=== PATIENT | male | born 1990 | race Two or more races ===

== ENCOUNTER 2025-01-19 08:41 | Inpatient (IN) | payer MEDICAID, SELFPAY ==
[2025-01-19] VITALS (51 sets, daily range): BP systolic 98–156; BP diastolic 46–100; PULSE 81–141; RESP 13–99; TEMP 36.8–37.1; O2SAT 94–100; BMI 32.1
--- NOTE | 2025-01-19 08:53 | PD.EDNV ---
Nausea/Vomit./Diarrhea-RME/HPI General Chief complaint: Fever Stated complaint: NAUSEA AND VOMITING, FEVER, ABD PAIN Time Seen by Provider: 01/19/25 08:52 Arrival date/time: 01/19/25 08:41 Limitations: no limitations RME / HPI RME / HPI Narrative: 34 year old male with history of diabetes presents to the ED BIBA from home for evaluation of nausea, vomiting, and abdominal pain beginning yesterday. Reports pain is located most to the epigastric and right upper quadrant regions that is described as cramping aching in sensation, rating as moderate. Accompanied by subjective fevers and feeling short of breath beginning today. Per medics, prehospital BS 480. Patient reports he is noncompliant with his Metformin and last took 6 months ago. Denies fevers, chills, sweats, chest pain, cough, diarrhea, constipation, or urinary symptoms. Related Data Previous Rx's ?Medication ?Instructions ?Recorded blood-glucose sensor (FreeStyle #1 ea 01/21/25 Shorty 3 Plus Sensor device) insulin degludec 100 unit/mL (3 15 unit (0.15 mL) subcut QDAY #15 01/21/25 mL) subcutaneous pen (Tresiba mL FlexTouch U-100 insulin) insulin lispro 100 unit/mL 5 unit (0.05 mL) subcut TID #15 mL 01/21/25 subcutaneous pen pen needle, diabetic 31 gauge x #100 ea 01/21/25 3/16 (Advocate Pen Needle) Allergies Allergy/AdvReac Type Severity Reaction Status Date / Time No Known Allergies Allergy Verified 01/19/25 09:01 Review of Systems Review of Systems Systems Reviewed: All systems reviewed, normal except as documented Past Medical History Past Medical History OTHER HISTORY: Positive Chicken Pox and Measles Family History FAMILY HISTORY: Positive Family Cardiac Disorders (GRANDMOTHER) and Family Gastrointestinal Problems (GRANDMOTHER) Social History SMOKING STATUS: Never smoker ED Exam General Limitations: Present no limitations General appearance: Present alert and other (appears uncomfortable, tachypneic ) Head Head exam: Present atraumatic, normocephalic and normal inspection Eye Eye exam: Present normal appearance, PERRL and EOMI ENT ENT exam: Present normal exam, normal oropharynx and mucous membranes moist Neck Neck exam: Present normal inspection, full ROM and trachea midline Chest Chest inspection: Present normal inspection and symmetric chest wall rise Respiratory Respiratory exam: Present normal lung sounds bilaterally and other (tachypneic ) Cardiovascular Cardiovascular exam: Present normal rhythm, tachycardia and normal heart sounds Abdominal Exam Abdominal exam: Present soft, tenderness (diffuse abdominal pain ) and normal bowel sounds; Absent guarding, rebound or rigidity Extremities Exam Extremities exam: Present normal inspection and full ROM Back Exam Back exam: Present normal inspection and full ROM Neurological Exam Neurological exam: Present alert, oriented X3 and CN II-XII intact Psychiatric Psychiatric exam: Present normal affect and normal mood Skin Skin exam: Present dry, intact, normal color and other (cool) Course Quality Measures none Orders Category Date Time Status Bedside Blood Glucose Q1H Care 01/19/25 11:52 Completed Beverage Host Q4H Care 01/19/25 11:52 Completed DKA Protocol QSHIFT Care 01/19/25 11:52 Completed EKG (ED ONLY) *Do not use* NOW Care 01/19/25 08:56 Completed Notify provider NEEDED Care 01/19/25 11:52 Completed Referral Registered Dietitian Routine Cons 01/19/25 11:52 Active EKG (ED Only) Stat Exams 01/19/25 08:56 Draft US abdomen limited Stat Exams 01/19/25 08:55 Completed XR chest 1V portable Stat Exams 01/19/25 11:52 Completed ABG [Arterial Blood Gas] Stat Lab 01/19/25 12:11 Completed Beta Hydroxybutyrate Stat Lab 01/19/25 10:06 Completed CBC AM DRAW Lab 01/20/25 05:39 Completed CBC Stat Lab 01/19/25 10:06 Completed CMP [Comprehensive Metabolic Panel] Stat Lab 01/19/25 10:06 Completed Drug Screen,Urine Stat Lab 01/19/25 10:58 Completed Glycohemoglobin w (eAG) AM DRAW Lab 01/20/25 05:39 Completed Lactate (Lactic Acid) Q4H Lab 01/19/25 17:23 Completed Lactate (Lactic Acid) Q4H Lab 01/19/25 20:20 Completed Lactate (Lactic Acid) Q4H Lab 01/20/25 00:49 Completed Lactate (Lactic Acid) Q4H Lab 01/20/25 05:39 Completed Lactate (Lactic Acid) Q4H Lab 01/20/25 07:56 Completed Lipase Stat Lab 01/19/25 10:06 Completed Magnesium Q4H Lab 01/19/25 17:23 Completed Magnesium Q4H Lab 01/19/25 20:20 Completed Magnesium Q4H Lab 01/20/25 00:49 Completed Magnesium Q4H Lab 01/20/25 05:39 Completed Magnesium Q4H Lab 01/20/25 07:56 Completed Phosphorous Q4H Lab 01/20/25 07:56 Completed UA, C/S IF [Urinalysis, C/S if Indicated] Stat Lab 01/19/25 10:58 Completed VBG [Venous Blood Gas] Stat Lab 01/19/25 10:06 Completed Dextrose 5%-Lactated Ringers [D5-Lr] 1,000 ml Med 01/19/25 11:52 Discontinued Pot Chl Additive [KCl Additive] 40 meq IV 250 mls/hr Dextrose 5%-Lactated Ringers [D5-Lr] 1,000 ml Med 01/19/25 11:52 Discontinued IV 250 mls/hr Dextrose 50% Syr [D50w Syringe Abboject] Med 01/19/25 11:52 Discontinued 25 ml IV PRNMRX1 PRN KCL 20 mEq/L in D5-LR Med 01/19/25 11:52 Discontinued 20 meq in 1,000 ml IV 250 mls/hr Magnesium Sulfate 2 GM Ivpb [Magnesium Sulfate Ivpb] Med 01/19/25 11:52 Discontinued 2 gm in 50 ml IV 25 mls/hr POT PHOS 15 mMol in NS 250 ML [Pot Phos 15 mMol in NS Med 01/19/25 11:52 Discontinued 250 ml] 15 mmol in 250 ml IV PRN POTASSIUM CHL 10 mEq IVPB [Kcl Ivpb] Med 01/19/25 11:52 Discontinued 10 meq in 100 ml IV 100 mls/hr POTASSIUM CHL 10 mEq IVPB [Kcl Ivpb] Med 01/19/25 11:52 Discontinued 10 meq in 100 ml IV PRN Pre-Mixed [Pre-mixed Bag] 1 bag Med 01/19/25 11:52 Discontinued Insulin Reg 100 Units/100 ml [Myxredlin] 100 unit IV 0.1 unit/kg/hr Ringers Lactated 1000 ml [Lactated Ringers] 1,000 ml Med 01/19/25 11:52 Discontinued Pot Chl Additive [KCl Additive] 20 meq IV 250 mls/hr Ringers Lactated 1000 ml [Lactated Ringers] 1,000 ml Med 01/19/25 11:52 Discontinued Pot Chl Additive [KCl Additive] 40 meq IV 250 mls/hr Ringers Lactated 1000 ml [Lactated Ringers] 1,000 ml Med 01/19/25 11:52 Discontinued IV 250 mls/hr Ringers Lactated 1000 ml [Lactated Ringers] 1,000 ml Med 01/19/25 08:52 Discontinued IV 999 mls/hr Ringers Lactated 1000 ml [Lactated Ringers] 1,000 ml Med 01/19/25 10:28 Discontinued IV 999 mls/hr Ringers Lactated 1000 ml [Lactated Ringers] 1,000 ml Med 01/19/25 10:29 Discontinued IV 999 mls/hr Ringers Lactated 1000 ml [Lactated Ringers] 1,000 ml Med 01/19/25 10:32 Discontinued IV 999 mls/hr Sodium Bicarb 8.4% 50ml Vial* Med 01/19/25 10:32 Discontinued 50 meq IV X1 ONE Sodium Bicarb 8.4% 50ml Vial* [facility] 01/19/25 10:33 Discontinued 50 meq IV X1 ONE Sodium Bicarb 8.4% SYR Med 01/19/25 11:52 Discontinued 50 ml IV Q4HR PRN Sodium Chloride 0.9% 250 ml [Ns] 250 ml Med 01/19/25 11:52 Discontinued Sod Phos Additive [NaPhos Additive] 15 mmol IV 62.5 mls/hr fentaNYL INJ [Sublimaze Inj] Med 01/19/25 08:57 Discontinued 50 mcg IVP X1 ONE Vital Signs Vital signs: Vital Signs Temperature 98.3 F 01/19/25 08:47 Pulse Rate 126 H 01/19/25 08:47 Respiratory Rate 20 01/19/25 08:47 Blood Pressure 114/76 01/19/25 08:47 Pulse Oximetry (%) 99 01/19/25 08:47 Oxygen Delivery Method Room Air 01/19/25 08:47 Pulse ox is 99% on room air which is adequate. Nausea/Vomiting/Diarrhea MDM Narrative MDM Narrative:: Jessica Michel, geraldine scribing for and in the presence of Dr. Soliman. Patient is a 34, yo male that is in the ED with concerns for abdominal pain and nausea. Vital signs and exam as listed. Concern for DKA, urinary tract infection pancreatitis, cholecystitis among others. Ordered labs right upper quadrant ultrasound fluids and offer medication for symptom relief. EKG performed 01/19/2025 @ 09:09 AM shows sinus tachycardia, rate 118, prominent T-waves, normal intervals, nonspecific T-wave changes, no STEMI. Patient presenting with a glucose greater than 400. pH less than 7, currently 6.91, bicarb 29. Beta hydroxybutyrate 6.4. Given history of diabetes concern for DKA. Given the critically low pH ordered 2 Amp of bicarb, additional fluids. Patient provided consent at bedside for placement of a central line if needed. Patient signed form. We were able to obtain IV access, received fluid bolues, meds for symptom relief. Patient feels better. Potassium appropriate for starting insulin gtt. I spoke with arranger assembler Dr. Pack. Discussed patients PMHx, HPI, ED course, exam findings, labs, and radiology results. Patient accepted for admission to the ICU. Patient data External records reviewed:: [facility] previous records (I reviewed admission from 10/04/2020 through 10/07/2020 ) Clinical information provided by:: patient and EMS Social determinants that could affect healthcare access:: none Patient has the following chronic illnesses:: DM with medication noncompliance How is presenting disease/condition affected by chronic disease/condition?: exacerbated by Evaluation data The following diagnostics were reviewed and interpreted by me:: lab results, radiology exam(s) and EKG tracing(s) Lab and/or radiology exams considered but not ordered:: None Interpretation Summary: See MDM Medications / Prescriptions Medications / Prescriptions considered but not ordered:: None Medication administrations:: Medication Administration History Discontinued Medications Acetaminophen (Acetaminophen 325 Mg Tablet) 650 mg PO Q4HR PRN PRN Reason: PAIN SCALE 1-3 (mild Stop: 02/18/25 11:54 Dextrose (Dextrose 50%-Water Inj 50 Ml Syringe) 25 ml IV PRNMRX1 PRN PRN Reason: Blood Sugar - Low Dextrose (Dextrose 50%-Water Inj 50 Ml Syringe) 25 ml IV Q15MIN PRN PRN Reason: BG 50-70 responsive npo pt Stop: 02/19/25 07:09 Dextrose (Dextrose 50%-Water Inj 50 Ml Syringe) 50 ml IV Q15MIN PRN PRN Reason: BG <50 OR BG <70 & pt unresponsive Stop: 02/19/25 07:09 Fentanyl Citrate (Fentanyl Cit Inj 50 Mcg/Ml Amp 2ml) 50 mcg IVP X1 ONE Stop: 01/19/25 08:58 Last Admin: 01/19/25 09:05 Dose: 50 mcg Documented By: TOMMY Glucagon (Glucagon Inj 1 Mg Vial) 1 mg IM Q15MIN PRN PRN Reason: BG <70, and no IV access Heparin Sodium (Porcine) (Heparin Sod Inj 5000 Unit/Ml Vial) 5,000 unit SC Q12HR IRINEO Stop: 02/02/25 20:59 Last Admin: 01/21/25 09:08 Dose: 5,000 unit Documented By: GISSELLE Co-signed By: ME Admin: 01/20/25 20:00 Dose: 5,000 unit Documented By: Co-signed By: PG Admin: 01/20/25 09:57 Dose: 5,000 unit Documented By: (2) Co-signed By: EDGAR Admin: 01/19/25 20:37 Dose: 5,000 unit Documented By: LANA Co-signed By: GERALDINE Lactated Ringer's (Lactated Ringers) 1,000 mls @ 999 mls/hr IV .Q1H1M ONE Stop: 01/19/25 09:52 Last Infusion: 01/19/25 10:23 Dose: Infused Documented By: Admin: 01/19/25 09:08 Dose: 999 mls/hr Documented By: TOMMY Lactated Ringer's (Lactated Ringers) 1,000 mls @ 999 mls/hr IV .Q1H1M ONE Stop: 01/19/25 11:28 Last Admin: 01/19/25 10:52 Dose: 999 mls/hr Documented By: TOMMY Lactated Ringer's (Lactated Ringers) 1,000 mls @ 999 mls/hr IV .Q1H1M ONE Stop: 01/19/25 11:29 Last Admin: 01/19/25 10:56 Dose: 999 mls/hr Documented By: TOMMY Lactated Ringer's (Lactated Ringers) 1,000 mls @ 999 mls/hr IV .Q1H1M ONE Stop: 01/19/25 11:32 Last Admin: 01/19/25 11:05 Dose: 999 mls/hr Documented By: TOMMY Magnesium Sulfate (Magnesium Sulfate Ivpb) 2 gm in 50 mls @ 25 mls/hr IV .Q2H PRN PRN Reason: PER DKA PROTOCOL Stop: 02/18/25 11:51 Last Admin: 01/19/25 21:24 Dose: 25 mls/hr Documented By: WB Potassium Chloride 40 meq/ (Dextrose/Lactated Ringer's) 1,020 mls @ 250 mls/hr IV .Q4H5M PRN PRN Reason: K LEVEL < 3.3mM/L Stop: 02/18/25 11:51 Dextrose/Lactated Ringer's (D5-Lr) 1,000 mls @ 250 mls/hr IV .Q4H PRN PRN Reason: PER PROTOCOL Stop: 02/18/25 11:51 Insulin Human Regular 100 unit (/ IV Miscellaneous Supplies) 100 mls @ 8.754 mls/hr IV .[id number] PRN; Protocol PRN Reason: PER PROTOCOL Stop: 02/18/25 11:51 Last Titration: 01/20/25 08:38 Dose: 0 unit/kg/hr, 0 mls/hr Documented By: MR(2) Co-signed By: WL Titration: 01/20/25 08:00 Dose: 0.05 unit/kg/hr, 4.377 mls/hr Documented By: MR(2) Co-signed By: WL Titration: 01/20/25 07:00 Dose: 0.05 unit/kg/hr, 4.377 mls/hr Documented By: WB Co-signed By: MR(2) Titration: 01/20/25 06:00 Dose: 0.05 unit/kg/hr, 4.377 mls/hr Documented By: WB Co-signed By: CMN Titration: 01/20/25 05:00 Dose: 0.05 unit/kg/hr, 4.377 mls/hr Documented By: WB Co-signed By: CMN Titration: 01/20/25 04:00 Dose: 0.025 unit/kg/hr, 2.189 mls/hr Documented By: WB Co-signed By: CMN Titration: 01/20/25 03:00 Dose: 0.05 unit/kg/hr, 4.377 mls/hr Documented By: WB Co-signed By: CMN Titration: 01/20/25 02:00 Dose: 0.1 unit/kg/hr, 8.754 mls/hr Documented By: WB Co-signed By: CMN Titration: 01/20/25 01:00 Dose: 0.05 unit/kg/hr, 4.377 mls/hr Documented By: WB Co-signed By: CMN Titration: 01/20/25 00:00 Dose: 0.05 unit/kg/hr, 4.377 mls/hr Documented By: WB Co-signed By: CMN Titration: 01/19/25 23:00 Dose: 0.05 unit/kg/hr, 4.377 mls/hr Documented By: WB Co-signed By: CMN Admin: 01/19/25 22:45 Dose: 0.1 unit/kg/hr, 8.754 mls/hr Documented By: WB Co-signed By: CMN Titration: 01/19/25 22:45 Dose: Infused Documented By: WB Co-signed By: CMN Titration: 01/19/25 22:05 Dose: 0.1 unit/kg/hr, 8.754 mls/hr Documented By: WB Co-signed By: CMN Titration: 01/19/25 21:05 Dose: 0.05 unit/kg/hr, 4.377 mls/hr Documented By: WB Co-signed By: CMN Titration: 01/19/25 20:00 Dose: 0.05 unit/kg/hr, 4.377 mls/hr Documented By: WB Co-signed By: CMN Titration: 01/19/25 19:00 Dose: 0.1 unit/kg/hr, 8.754 mls/hr Documented By: WB Co-signed By: LW Titration: 01/19/25 18:00 Dose: 0.05 unit/kg/hr, 4.377 mls/hr Documented By: LW Co-signed By: AT Titration: 01/19/25 17:00 Dose: 0.1 unit/kg/hr, 8.754 mls/hr Documented By: LW Co-signed By: MR(2) Titration: 01/19/25 16:00 Dose: 0.1 unit/kg/hr, 8.754 mls/hr Documented By: LW Co-signed By: AT Titration: 01/19/25 15:00 Dose: 0.1 unit/kg/hr, 8.754 mls/hr Documented By: LW Co-signed By: AT Titration: 01/19/25 14:00 Dose: 0.1 unit/kg/hr, 8.754 mls/hr Documented By: KOSTAS Co-signed By: MR(2) Titration: 01/19/25 13:00 Dose: 0.1 unit/kg/hr, 8.754 mls/hr Documented By: AT Co-signed By: KOSTAS Admin: 01/19/25 12:20 Dose: 0.1 unit/kg/hr, 8.754 mls/hr Documented By: DALJIT Co-signed By: TOMMY Potassium Chloride (Kcl Ivpb) 10 meq in 100 mls @ 100 mls/hr IV .Q1H PRN PRN Reason: IF POTASSIUM LESS THAN 3.3 Stop: 02/18/25 11:51 Last Admin: 01/20/25 06:42 Dose: 100 mls/hr Documented By: LANA Potassium Cl/Dextrose/Lact Ringer's (Kcl 20 Meq/L In D5-Lr) 20 meq in 1,000 mls @ 250 mls/hr IV .Q4H PRN PRN Reason: K LEVEL 3.3 TO 5.3 mM/L Potassium Chloride 20 meq/ (Lactated Ringer's) 1,010 mls @ 250 mls/hr IV .Q4H3M PRN PRN Reason: K LEVEL 3.3 TO 5.3mM/L Stop: 02/18/25 11:51 Last Infusion: 01/20/25 03:00 Dose: 0 mls/hr Documented By: Admin: 01/20/25 02:32 Dose: 250 mls/hr Documented By: Infusion: 01/20/25 02:25 Dose: Infused Documented By: Infusion: 01/20/25 02:00 Dose: 250 mls/hr Documented By: Infusion: 01/19/25 23:00 Dose: 0 mls/hr Documented By: Infusion: 01/19/25 22:05 Dose: 250 mls/hr Documented By: Infusion: 01/19/25 20:05 Dose: 0 mls/hr Documented By: Infusion: 01/19/25 19:00 Dose: 250 mls/hr Documented By: Infusion: 01/19/25 18:31 Dose: 0 mls/hr Documented By: Admin: 01/19/25 16:53 Dose: 250 mls/hr Documented By: Infusion: 01/19/25 16:53 Dose: Infused Documented By: Admin: 01/19/25 12:54 Dose: 250 mls/hr Documented By: KOSTAS Potassium Chloride 40 meq/ (Lactated Ringer's) 1,020 mls @ 250 mls/hr IV .Q4H5M PRN PRN Reason: K LEVEL < 3.3 mM/L Stop: 02/18/25 11:51 Potassium Phosphate (Pot Phos 15 Mmol In Ns 250 Ml) 15 mmol in 250 mls @ 62.5 mls/hr IV PRN PRN PRN Reason: Phosphate <= 1mg/dL Stop: 02/18/25 11:51 Last Admin: 01/19/25 21:24 Dose: 62.5 mls/hr Documented By: LANA Potassium Chloride (Kcl Ivpb) 10 meq in 100 mls @ 50 mls/hr IV PRN PRN PRN Reason: K LEVEL 3.3 to 5.3 & BG > 200 Stop: 02/18/25 11:51 Lactated Ringer's (Lactated Ringers) 1,000 mls @ 250 mls/hr IV .Q4H PRN PRN Reason: PER PROTOCOL Stop: 01/20/25 11:51 Sodium Phosphate 15 mmol/ (Sodium Chloride) 255 mls @ 62.5 mls/hr IV .Q4H5M PRN PRN Reason: Phosphate <= 1mg/dL and K> than 5.3 Stop: 02/18/25 11:51 Potassium Chloride 20 meq/ (Dextrose/Lactated Ringer's) 1,010 mls @ 250 mls/hr IV .Q4H3M PRN PRN Reason: K LEVEL 3.3 TO 5.3 mM/L Stop: 02/18/25 17:33 Last Admin: 01/20/25 07:20 Dose: 250 mls/hr Documented By: Infusion: 01/20/25 07:20 Dose: Infused Documented By: Infusion: 01/20/25 03:00 Dose: 250 mls/hr Documented By: Infusion: 01/20/25 02:00 Dose: 0 mls/hr Documented By: Admin: 01/20/25 01:45 Dose: 250 mls/hr Documented By: Infusion: 01/20/25 01:45 Dose: Infused Documented By: Infusion: 01/19/25 23:00 Dose: 250 mls/hr Documented By: Infusion: 01/19/25 22:05 Dose: 0 mls/hr Documented By: Infusion: 01/19/25 20:05 Dose: 250 mls/hr Documented By: Infusion: 01/19/25 19:00 Dose: 0 mls/hr Documented By: Admin: 01/19/25 18:31 Dose: 250 mls/hr Documented By: KOSTAS Magnesium Sulfate (Magnesium Sulfate Ivpb) 4 gm in 50 mls @ 12.5 mls/hr IV X1 ONE Stop: 01/20/25 05:03 Last Admin: 01/20/25 09:10 Dose: Not Given Documented By: (2) Non-Admin Reason: Discontinued Potassium Phosphate 22.5 mmol/ (Sodium Chloride) 507.5 mls @ 82.778 mls/hr IV X1 ONE Stop: 01/20/25 15:08 Last Admin: 01/20/25 09:54 Dose: Not Given Documented By: (2) Non-Admin Reason: Discontinued Potassium Phosphate (Pot Phos 15 Mmol In Ns 250 Ml) 15 mmol in 250 mls @ 62.5 mls/hr IV Q4H [facility] Stop: 01/20/25 17:14 Last Admin: 01/20/25 16:24 Dose: 62.5 mls/hr Documented By: Infusion: 01/20/25 14:24 Dose: Infused Documented By: Admin: 01/20/25 10:24 Dose: 62.5 mls/hr Documented By: (2) Insulin Degludec (Insulin Degludec 5 Unit/0.05 Ml (Per 5 Units)) 13 unit SC X1 ONE Stop: 01/20/25 04:45 Last Admin: 01/20/25 09:10 Dose: Not Given Documented By: (2) Non-Admin Reason: Discontinued Insulin Degludec (Insulin Degludec 5 Unit/0.05 Ml (Per 5 Units)) 13 unit SC QDAY IRINEO Stop: 02/19/25 07:09 Last Admin: 01/21/25 09:08 Dose: 13 unit Documented By: GISSELLE Co-signed By: LORENA Admin: 01/20/25 09:12 Dose: Not Given Documented By: (2) Non-Admin Reason: Duplicate Medication on eMAR Admin: 01/20/25 07:38 Dose: 13 unit Documented By: WB Co-signed By: MARY2) Insulin Human Lispro (Insulin Lispro (Admelog) 1 Unit/0.01 Ml Unit) 4 unit SC AC IRINEO Stop: 02/19/25 07:29 Last Admin: 01/20/25 07:32 Dose: Not Given Documented By: WB Non-Admin Reason: per Dr. Don hold this dose, give at 11:30 Insulin Human Lispro (Insulin Lispro (Admelog) 1 Unit/0.01 Ml Unit) 0 unit SC AC IRINEO; Protocol Stop: 02/19/25 07:29 Last Admin: 01/21/25 12:52 Dose: 1 unit Documented By: LH Co-signed By: ETHAN Admin: 01/21/25 09:08 Dose: 2 unit Documented By: LH Co-signed By: LORENA Admin: 01/20/25 17:56 Dose: 2 unit Documented By: LH Co-signed By: MARTIN Admin: 01/20/25 12:29 Dose: 3 unit Documented By: LH Co-signed By: LORENA Admin: 01/20/25 07:33 Dose: Not Given Documented By: WB Non-Admin Reason: per Dr. Don hold this dose, give at 11:30 Insulin Human Lispro (Insulin Lispro (Admelog) 1 Unit/0.01 Ml Unit) 4 unit SC AC IRINEO Stop: 02/19/25 11:29 Last Admin: 01/21/25 12:53 Dose: 4 unit Documented By: LH Co-signed By: ETHAN Admin: 01/21/25 09:09 Dose: 4 unit Documented By: LH Co-signed By: LORENA Admin: 01/20/25 17:56 Dose: 4 unit Documented By: LH Co-signed By: MARTIN Admin: 01/20/25 12:29 Dose: 4 unit Documented By: LH Co-signed By: LORENA Insulin Human Lispro (Insulin Lispro (Admelog) 1 Unit/0.01 Ml Unit) 4 unit SC X1 ONE Stop: 01/20/25 09:02 Last Admin: 01/20/25 09:57 Dose: 4 unit Documented By: MARY2) Co-signed By: EDGAR Magnesium Hydroxide (Milk Of Magnesia Susp 30 Ml Udc) 30 ml PO QDAY PRN PRN Reason: CONSTIPATION Stop: 02/18/25 11:54 Magnesium Hydroxide (Milk Of Magnesia Susp 30 Ml Udc) 30 ml PO X1 ONE; Protocol Stop: 01/21/25 10:23 Last Admin: 01/21/25 11:07 Dose: 30 ml Documented By: GISSELLE Ondansetron HCl (Ondansetron Inj 2 Mg/Ml Inj 2 Ml) 4 mg IVP Q6HR PRN; Protocol PRN Reason: NAUSEA OR VOMITING Stop: 02/18/25 18:28 Last Admin: 01/19/25 20:17 Dose: 4 mg Documented By: LANA Pantoprazole Sodium (Pantoprazole 40 Mg Tablet) 40 mg PO QDAY [facility] Stop: 02/19/25 08:59 Last Admin: 01/21/25 09:08 Dose: 40 mg Documented By: Admin: 01/20/25 09:57 Dose: 40 mg Documented By: (2) Polyethylene Glycol (Polyethylene Glycol 17 Gm Packet) 34 gm PO QDAY IRINEO Stop: 02/20/25 10:29 Last Admin: 01/21/25 11:08 Dose: 34 gm Documented By: GISSELLE Potassium Chloride (Potassium Chloride 20 Meq Tabcr) 20 meq PO X1 ONE Stop: 01/20/25 18:39 Last Admin: 01/20/25 19:59 Dose: 20 meq Documented By: Potassium Chloride (Potassium Chloride 20 Meq Tabcr) 40 meq PO X1 ONE Stop: 01/21/25 08:30 Last Admin: 01/21/25 09:08 Dose: 40 meq Documented By: GISSELLE Potassium Phos/Sodium Phos (Naph,[facility] Mbdb 1 Packet (1.5 Gm)) 1 packet PO BIDWM IRINEO Stop: 01/21/25 17:31 Last Admin: 01/21/25 09:08 Dose: 1 packet Documented By: Admin: 01/20/25 17:57 Dose: 1 packet Documented By: Admin: 01/20/25 12:29 Dose: 1 packet Documented By: GISSELLE Sennosides (Senna/Docusate Sod 1 Tab Tablet) 2 tab PO QDAY IRINEO; Protocol Stop: 02/20/25 10:29 Last Admin: 01/21/25 11:08 Dose: 2 tab Documented By: GISSELLE Sodium Bicarbonate (Sodium Bicarb Inj 8.4% 1 Meq/Ml 50 Ml Vial) 50 meq IV X1 ONE Stop: 01/19/25 10:33 Last Admin: 01/19/25 10:54 Dose: 50 meq Documented By: TOMMY Sodium Bicarbonate (Sodium Bicarb Inj 8.4% 1 Meq/Ml 50 Ml Vial) 50 meq IV X1 ONE Stop: 01/19/25 10:34 Last Admin: 01/19/25 11:01 Dose: 50 meq Documented By: TOMMY Sodium Bicarbonate (Sodium Bicarb Inj 8.4% Syr 50 Ml Syringe) 50 ml IV Q4HR PRN PRN Reason: For ph <= to 7.0 Stop: 02/18/25 11:51 See above Consultations Consultation(s) initiated? (list below): Yes Consultation #1 (Physician, Specialty, Details): see mdm Diagnosis Nausea Differential Diagnosis: food poisoning, gastroenteritis, drug-induced nausea and vomiting, dehydration and other (Hyperglycemia, DKA ) Most likely diagnosis given after review of the tests above:: DKA Admission Indicated Admission indicated?: indicated Admission Request Was there a request for admission?: Yes Admission Attestation Admission request attestation: Discussed case with Hospitalist service regarding admission. Discussed patients ED course, exam findings, labs, and radiology results. The Hospitalist [agrees] to accept the patient for admission. Disposition Plan Disposition Plan: Admit Critical Care Time Critical Care Time Critical Care Time: Yes Total Critical Care Time (min.): 120 Attestation: The high probability of sudden, clinically significant deterioration in the patient's condition required the highest level of my preparedness to intervene urgently. The services I provided to this patient were to treat and/or prevent clinically significant deterioration. Services included the following: chart data review, reviewing nursing notes and/or old charts, documentation time, it support consultant collaboration regarding findings and treatment options, medication orders and management, direct patient care, vital sign assessments and ordering, interpreting and reviewing diagnostic studies and lab tests. Aggregate critical care time includes only time during which I was engaged in work directly related to the patient's care, as described above, whether at bedside or elsewhere in the Emergency Department. It did not include time spent performing other reported procedures or the services of residents, students, nurses or physician assistants. Discharge Plan Plan Patient Disposition: Admit Acute Care w/in Hospital Patient condition on transfer: Stable Problem List Clinical Impression: DKA (diabetic ketoacidoses)
--- NOTE | 2025-01-19 08:55 | XR_ITS ---
Examination: Abdomen sonogram, Limited Date and time of exam: January 19 thousand 25, 1412 hrs. Indications: Epigastric pain today, diagnosis diabetic C1 stenosis Technique: Real-time florez scale transabdominal sonographic images of the upper abdomen obtained. Findings: Cholelithiasis, gallbladder wall 0.3 cm Common bile duct 0.4 cm Pancreatic head 1.9 cm Liver 15.0 cm fatty infiltration Normal hepatopedal portal venous flow Patent IVC Impression: Cholelithiasis, negative for cholecystitis
--- NOTE | 2025-01-19 08:56 | EKG_ITS ---
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
[2025-01-19] MEDS: fentaNYL CIT INJ 50 mCg/ML AMP 2ML IVP (09:05)
[2025-01-19] MEDS: RINGERS LACTATED 1000 ML 1,000 ML 999 ML IV ×4 (09:08→11:05)
[2025-01-19 10:17] LABS: Base Excess, Venous -27 (-3-3); O2 Saturation, Venous 71 % (96-97); PCO2, Venous 29 mmHg (36-56); PO2, Venous 47 mmHg (15-58); pH, Venous 6.91 (7.33-7.66)
[2025-01-19 10:23] LABS: Basophils # (Auto) 0.1 Thou/mm3 (0.0-0.2); Basophils % (Auto) 0 % (0-2.5); Beta Hydroxybutyrate 6.4 mmol/L (<0.6); Eosinophils # (Auto) 0.0 Thou/mm3 (0.0-0.5); Eosinophils % (Auto) 0 % (0-10); Hematocrit 48.9 % (41.0-53.0); Hemoglobin 16.2 g/dL (13.5-16.0); Immature Granulocytes Auto 0.24 Thou/mm3 (0.00-0.00); Lymphocytes # (Auto) 1.0 Thou/mm3 (1.0-4.8); Lymphocytes % (Auto) 7 % (10-50); Mean Corpuscular HGB Conc 33.1 g/dl (31.0-37.0); Mean Corpuscular Hemoglobin 28.4 pg (25.0-35.0); Mean Corpuscular Volume 86 fL (80-100); Monocytes # (Auto) 0.7 Thou/mm3 (0.0-0.8); Monocytes % (Auto) 5 % (0-12); Neutrophils # (Auto) 12.6 Thou/mm3 (1.8-7.7); Neutrophils % (Auto) 87 % (37-80); Nucleated Red Blood Cell # 0.00 Thou/mm3 (0.00-0.00); Nucleated Red Blood Cell % 0 /100 WBC (0); Platelet Count 256 Thou/mm3 (140-440); RDW Standard Deviation 40.0 fL (35.1-43.9); Red Blood Count 5.71 Miln/mm3 (4.50-5.90); White Blood Count 14.6 Thou/mm3 (3.8-10.6)
[2025-01-19] MEDS: SODIUM BICARB INJ 8.4% 1 mEq/ML 50 ML VIAL 50 MEQ IV ×2 (10:54→11:01)
[2025-01-19 11:14] LABS: Alanine Aminotransferase 25 U/L (10-49); Albumin, Serum 4.5 gm/dL (3.5-5.0); Albumin/Globulin Ratio 1.7 (1.2-2.2); Alkaline Phosphatase 90 U/L (46-116); Anion Gap 27 (7-16); Aspartate Amino Transferase 12 U/L (0-34); BUN/Creatinine Ratio 14 Ratio (12-20); Bilirubin,Total 0.4 mg/dL (0.3-1.2); Blood Urea Nitrogen 26 mg/dL (9-23); Calcium 9.1 mg/dL (8.3-10.6); Calcium (Corrected) 9.1 mg/dL (8.5-10.1); Chloride 101 mMol/L (98-107); Creatinine (Component) 1.9 mg/dL (0.6-1.3); Estimated Creatinine Clearance 55.2 mL/min (>60); Globulin 2.6 gm/dL (2.3-3.5); Lipase 24 U/L (12-53); Osmolality,Calculated 308 (275-295); Potassium 5.0 mMol/L (3.4-5.1); Sodium 138 mMol/L (136-145); Total Protein 7.1 gm/dL (5.7-8.2); eGFR 47 See Note
[2025-01-19 11:17] LABS: Carbon Dioxide < 10.0 mMol/L (20.0-31.0)
[2025-01-19 11:17] LABS: Collection Type, Urine Clean Catch; Squamous Epithelial Cell,Urine 0 /hpf (0-5)
[2025-01-19 11:18] LABS: Glucose 604 mg/dL (74-106)
[2025-01-19 11:39] LABS: Amorphous Crystals,Urine Present (Absent); Bilirubin,Urine Negative (Negative); Blood,Urine 2+ (Negative); Clarity,Urine Clear (Clear/Hazy); Color,Urine Lt-Yellow (Lt Yel-Yel); Culture Indicated,Urine Not Indicated; Glucose, Urine 4+ (Negative); Granular Casts,Urine 1 /hpf (0-1); Ketones,Urine 4+ (Negative); Leukocyte Esterase,Urine Negative (Negative); Nitrite,Urine Negative (Negative); PH,Urine 5.5 (5.0-7.0); Protein,Urine 1+ (Neg - Trace); RBC,Urine 7 /hpf (0-3); Specific Gravity,Urine 1.026 (1.001-1.035); Urobilinogen,Urine Negative mg/dL (0.0-1.0); WBC,Urine 2 /hpf (0-5)
[2025-01-19 11:46] LABS: Amphetamine/Methamp Scrn,U Negative (Negative); Barbiturate Screen,Urine Negative (Negative); Benzodiazepines Screen,Urine Negative (Negative); Benzoylecgonine Screen, Ur Negative (Negative); Fentanyl Screen,Urine Positive (Negative); Opiate Screen,Urine Negative (Negative); THC Screen,Urine Negative (Negative)
--- NOTE | 2025-01-19 11:52 | XR_ITS ---
Examination: AP chest single view Technique one AP portable upright chest single view Date and time: January 19, 2025 1217 hours, comparison October 04, 2020 INDICATIONS: Fever congestion today. FINDINGS: Normal heart size. Lungs are clear. The osseous structures are intact. IMPRESSION: No active disease
--- NOTE | 2025-01-19 12:02 | PD.RESHP ---
Documentation for date of: 01/19/25 HPI History of Present Illness Chief complaint: Abdominal pain , nausea and vomiting History of present illness: Patient is Vietnamese-speaking and translated with the help of staff interpreter. A 34-year-old male with significant past medical history of DKA, diagnosed with diabetes mellitus during that episode but not on any medication and notes that he is using some herbal supplements presented to the ED with chief complaints of abdominal pain, nausea and vomiting since 2 days. Patient reported that he is at his normal baseline 2 days ago. Noted to have abdominal pain, predominantly in the epigastric region associated with nausea and vomitings since the day before admission. Noted to have multiple episodes of vomitings, mainly watery and not associated with any blood or discoloration. Reported that he felt like he had mild racing temperature of the body but did not check it with the monitor. And endorsed on the day of admission, he noted significant shortness of breath due to which he came to the ED for further evaluation. Denies cough, burning micturition, syncopal episodes, diarrhea, recent sick contacts, flulike illness. Reported that he is not following with his primary care provider and does not take any medications for diabetes mellitus except some herbal supplements. ED course: - Vitals at the time of admission are significant for pulse rate 126 bpm - Labs at the time of admission significant for WBC 14.6, hemoglobin 16.2, potassium 5, bicarb less than 10, anion gap 27, BUN 26, creatinine 1.9. Glucose 604, beta hydroxybutyrate 6.4, lipase 24 - Initial VBG showed pH 6.91, ABG showed pH of 7.05, bicarb 6, pCO2 20 - Urinalysis showed 1+ protein, 4+ glucose, 4+ ketones, 2+ blood, 7 RBC - Chest x-ray done did not show any significant infiltrates. EKG showed sinus tachycardia with no ST-T wave changes. Abdominal ultrasound showed cholelithiasis and negative for cholecystitis - In the ED, patient was given 4 L of fluid bolus, fentanyl 50 mcg, 1 dose of sodium bicarb 50 mill equivalents. - Patient is admitted in the ICU for DKA management. Past medical history: DKA, diabetes mellitus not on any medication Past surgical history: Not significant Social history: Patient lives alone, denies smoking, alcohol, other illicit drug abuse. Works in the [employer] Review of Systems Review of Systems Systems Reviewed: All systems reviewed, normal except as documented Narrative Review of Systems: Constitutional: No Weight Change, No Fever, No Chills, No Night Sweats, No Fatigue, No Malaise ENT/Mouth: No Hearing Changes, No Ear Pain, No Nasal Congestion, No Sinus Pain, No Hoarseness, No sore throat, No Rhinorrhea, No Swallowing Difficulty Eyes: No Eye Pain, No Swelling, No Redness, No Foreign Body, No Discharge, No Vision Changes Cardiovascular: No Chest Pain, No SOB, No PND, No Dyspnea on Exertion, No Orthopnea, No Edema, No Palpitations Respiratory: No Cough, No Sputum, No Wheezing, Dyspnea Gastrointestinal: Nausea, Vomiting, No Diarrhea, No Constipation, No Pain, No Heartburn, No Anorexia, No Dysphagia, No Hematochezia, No Melena, No Flatulence, No Jaundice Genitourinary: No Dysuria, No Urinary Frequency, No Hematuria, No Urinary Incontinence, No Urgency, No Flank Pain, No Urinary Flow Changes, No Hesitancy Musculoskeletal: No Arthralgias, No Myalgias, No Joint Swelling, No Joint Stiffness, No Back Pain, No Neck Pain, No Injury History Skin: No Skin Lesions, No Pruritis Neuro: No Weakness, No Numbness, No Paresthesias, No Loss of Consciousness, No Syncope, No Dizziness, No Headache, No Coordination Changes, No Recent Falls Exam Vital Signs Temp Pulse Resp BP Pulse Ox O2 Del Method 98.3 F 126 H 20 114/76 99 Room Air 01/19/25 08:47 01/19/25 08:47 01/19/25 08:47 01/19/25 08:47 01/19/25 08:47 01/19/25 08:47 Narrative Exam General: Awake. noted kussumaul breathing HEENT: Normocephalic, atraumatic, mucous membranes dry. Heart: Regular rhythm, no murmurs. Tachycardia Lungs: Clear to auscultation with no wheezing or crackles. Abdomen: Soft, nondistended, nontender, positive bowel sounds. ?No guarding or rebound tenderness. Neurologic: Alert and oriented x3, no gross neurological deficit, and patient able to move all 4 extremities. Extremities: No edema. Skin: No rash or ecchymoses. Results: Labs 01/20/25 05:39 01/20/25 05:39 Labs: Short CBC 01/19/25 Range/Units 10:06 WBC 14.6 H (3.8-10.6) Thou/mm3 Hgb 16.2 H (13.5-16.0) g/dL Hct 48.9 (41.0-53.0) % Plt Count 256 (140-440) Thou/mm3 BMP 01/19/25 10:06 Sodium 138 Potassium 5.0 Chloride 101 Carbon Dioxide < 10.0 L* BUN 26 H Creatinine 1.9 H Glucose 604 H* Calcium 9.1 Liver Function 01/19/25 Range/Units 10:06 Total Bilirubin 0.4 (0.3-1.2) mg/dL AST 12 (0-34) U/L ALT 25 (10-49) U/L Alkaline Phosphatase 90 (46-116) U/L Albumin 4.5 (3.5-5.0) gm/dL Urine 01/19/25 Range/Units 10:58 Urine Color Lt-Yellow (Lt Yel-Yel) Urine Clarity Clear (Clear/Hazy) Urine pH 5.5 (5.0-7.0) Ur Specific [place] 1.026 (1.001-1.035) Urine Protein 1+ A (Neg - Trace) Urine Glucose (UA) 4+ A (Negative) ABG Interpretation ABG results: 01/19/25 10:06 VBG pH 6.91 L VBG pCO2 29 L VBG pO2 47 VBG Base Excess -27 L Quality Measures Quality Measures none Medications Home Medications and Allergies Allergies Allergy/AdvReac Type Severity Reaction Status Date / Time No Known Allergies Allergy Verified 01/19/25 09:01 Visit Medications Acetaminophen (Acetaminophen 325 Mg Tablet) 650 mg PO Q4HR PRN PRN Reason: PAIN SCALE 1-3 (mild Stop: 02/18/25 11:54 Dextrose (Dextrose 50%-Water Inj 50 Ml Syringe) 25 ml IV [id number] PRN PRN Reason: Blood Sugar - Low Heparin Sodium (Porcine) (Heparin Sod Inj 5000 Unit/Ml Vial) 5,000 unit SC Q12HR IRINEO Stop: 02/02/25 20:59 Lactated Ringer's (Lactated Ringers) 1,000 mls @ 999 mls/hr IV .Q1H1M ONE Stop: 01/19/25 11:28 Last Admin: 01/19/25 10:52 Dose: 999 mls/hr Lactated Ringer's (Lactated Ringers) 1,000 mls @ 999 mls/hr IV .Q1H1M ONE Stop: 01/19/25 11:29 Last Admin: 01/19/25 10:56 Dose: 999 mls/hr Lactated Ringer's (Lactated Ringers) 1,000 mls @ 999 mls/hr IV .Q1H1M ONE Stop: 01/19/25 11:32 Last Admin: 01/19/25 11:05 Dose: 999 mls/hr Magnesium Sulfate (Magnesium Sulfate Ivpb) 2 gm in 50 mls @ 25 mls/hr IV .Q2H PRN PRN Reason: PER DKA PROTOCOL Stop: 02/18/25 11:51 Potassium Chloride 40 meq/ (Dextrose/Lactated Ringer's) 1,020 mls @ 250 mls/hr IV .Q4H5M PRN PRN Reason: K LEVEL < 3.3mM/L Stop: 02/18/25 11:51 Dextrose/Lactated Ringer's (D5-Lr) 1,000 mls @ 250 mls/hr IV .Q4H PRN PRN Reason: PER PROTOCOL Stop: 02/18/25 11:51 Insulin Human Regular 100 unit (/ IV Miscellaneous Supplies) 100 mls @ 8.754 mls/hr IV .[id number] PRN; Protocol PRN Reason: PER PROTOCOL Stop: 02/18/25 11:51 Potassium Chloride (Kcl Ivpb) 10 meq in 100 mls @ 100 mls/hr IV .Q1H PRN PRN Reason: IF POTASSIUM LESS THAN 3.3 Stop: 02/18/25 11:51 Potassium Cl/Dextrose/Lact Ringer's (Kcl 20 Meq/L In D5-Lr) 20 meq in 1,000 mls @ 250 mls/hr IV .Q4H PRN PRN Reason: K LEVEL 3.3 TO 5.3 mM/L Potassium Chloride 20 meq/ (Lactated Ringer's) 1,010 mls @ 250 mls/hr IV .Q4H3M PRN PRN Reason: K LEVEL 3.3 TO 5.3mM/L Stop: 02/18/25 11:51 Potassium Chloride 40 meq/ (Lactated Ringer's) 1,020 mls @ 250 mls/hr IV .Q4H5M PRN PRN Reason: K LEVEL < 3.3 mM/L Stop: 02/18/25 11:51 Potassium Phosphate (Pot Phos 15 Mmol In Ns 250 Ml) 15 mmol in 250 mls @ 62.5 mls/hr IV PRN PRN PRN Reason: Phosphate <= 1mg/dL Stop: 02/18/25 11:51 Potassium Chloride (Kcl Ivpb) 10 meq in 100 mls @ 50 mls/hr IV PRN PRN PRN Reason: K LEVEL 3.3 to 5.3 & BG > 200 Stop: 02/18/25 11:51 Lactated Ringer's (Lactated Ringers) 1,000 mls @ 250 mls/hr IV .Q4H PRN PRN Reason: PER PROTOCOL Stop: 01/20/25 11:51 Sodium Phosphate 15 mmol/ (Sodium Chloride) 255 mls @ 62.5 mls/hr IV .Q4H5M PRN PRN Reason: Phosphate <= 1mg/dL and K> than 5.3 Stop: 02/18/25 11:51 Magnesium Hydroxide (Milk Of Magnesia Susp 30 Ml Udc) 30 ml PO QDAY PRN PRN Reason: CONSTIPATION Stop: 02/18/25 11:54 Pantoprazole Sodium (Pantoprazole 40 Mg Tablet) 40 mg PO QDAY IRINEO Stop: 02/19/25 08:59 Sodium Bicarbonate (Sodium Bicarb Inj 8.4% Syr 50 Ml Syringe) 50 ml IV Q4HR PRN PRN Reason: For ph <= to 7.0 Stop: 02/18/25 11:51 Discontinued Medications Fentanyl Citrate (Fentanyl Cit Inj 50 Mcg/Ml Amp 2ml) 50 mcg IVP X1 ONE Stop: 01/19/25 08:58 Last Admin: 01/19/25 09:05 Dose: 50 mcg Lactated Ringer's (Lactated Ringers) 1,000 mls @ 999 mls/hr IV .Q1H1M ONE Stop: 01/19/25 09:52 Last Infusion: 01/19/25 10:23 Dose: Infused Sodium Bicarbonate (Sodium Bicarb Inj 8.4% 1 Meq/Ml 50 Ml Vial) 50 meq IV X1 ONE Stop: 01/19/25 10:33 Last Admin: 01/19/25 10:54 Dose: 50 meq Sodium Bicarbonate (Sodium Bicarb Inj 8.4% 1 Meq/Ml 50 Ml Vial) 50 meq IV X1 ONE Stop: 01/19/25 10:34 Last Admin: 01/19/25 11:01 Dose: 50 meq Assessment & Plan Plan A 34-year-old male with significant past medical history of DKA, diagnosed with diabetes mellitus during that episode but not on any medication and notes that he is using some herbal supplements presented to the ED with chief complaints of abdominal pain, nausea and vomiting since 2 days and admitted in the 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 for 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 CVS # Sinus tachycardia - Likely in the setting of ongoing dehydration secondary to DKA - Patient denies chest pain, syncopal-like episodes - EKG done at the time of admission showed sinus tachycardia without any ST and T wave changes RS # Kussmaul breathing - Noted to have respiratory rate of 30/min - Likely compensatory to the ongoing metabolic acidosis - Will treat underlying DKA Renal #High anion gap metabolic acidosis # Ketoacidosis # Lactic acidosis - Likely in the setting of ongoing DKA and severe dehydration - At the time of admission, noted to have bicarb less than 10, anion gap 27, lactate is 2.6, beta hydroxybutyrate is 6.4 - ABG done at the time of admission showed pH 7.05, bicarb 6, pCO2 20 Plan - Started on DKA protocol - Will continue to monitor renal panel # GABYB - Likely prerenal in the setting of severe DKA causing dehydration and hypovolemia - Baseline creatinine is 0.6 in 2020 - At the time of admission, creatinine is 1.9, BUN 26 Plan - Will treat underlying DKA - Patient received 4 L bolus in the ED - Will continue to monitor renal panel and urine output - Will avoid nephrotoxic medications and renally dose medications Endo # Diabetic ketoacidosis # Diabetes mellitus, likely type I -Likely from drug incompetence - Patient had history of DKA in 2020 and was diagnosed to have diabetes mellitus at that time - Patient was supposed to use insulin but not compliant with medications and endorsed that he is using some herbal supplements for that and previously used metformin occasionally - Denies following up with any primary care provider - Presented to the hospital with chief complaints of abdominal pain, nausea and vomiting - No suspicion of any infection as of now - At the time of admission noted to have pH 6.9, beta hydroxybutyrate 6.4, glucose 604 Plan - 4 L of LR boluses given in the ED - Started on DKA protocol - Will continue to monitor renal functions and electrolytes, replete as needed - Once anion gap closes twice, will transition from IV to subcu insulin GI # GI prophylaxis - Started on pantoprazole # Nausea and vomiting - Likely in the setting of DKA - Will treat underlying condition and ondansetron as needed ID # No active problems Musculoskeletal # No active problems Hospital Maintenance: Dispo: ICU DVT ppx: heparin GI ppx: pantoprazole Diet: Water IV lines: peripheral Code status: Full Patient plan of care was discussed with the Compressor Mechanic Bus, Dr. Ramone Blackman, PGY2 Attending Provider Attestation/Addendum Patient seen and examined with above resident, Kris Blackman MD. I agree with the findings, assessment, and plan of care as documented except for any differences below. Patient known history of diabetes, however limited understanding and is up to his underlying medical illness. Patient with repeat episode of diabetic ketoacidosis requiring admission to ICU for ongoing fluid resuscitation and IV insulin/monitoring. No underlying suspected infection or ischemic event as a precipitant. Patient reports that he has been taking herbal supplements though he was prescribed insulin on discharge. Previously was treated only with metformin. Patient is starting to produce urine after 4 L of volume resuscitation in the emergency department. Continue to follow labs serially per protocol. Transition to subcutaneous regimen when appropriate. Total critical care time: Personally spent 30 minutes for review of physiologic parameters, directing plan of care throughout the day, and counseling patient at bedside. This is exclusive of any time spent teaching of staff performing separate billable procedures. Patient remains at significant risk of further morbidity and mortality warranting close monitoring and care will be available in the ICU. Critical care services required for diabetic ketoacidosis and SIRS without definitive infection.
[2025-01-19 12:13] LABS: Base Excess -23 (-3-3); HCO3 6 mEq/L (20-26); Inspired Oxygen, FIO2 21 %; O2 Saturation 70 % (91-98); PCO2 20 mmHg (32.0-48.0)
[2025-01-19 12:15] LABS: Allen Test Not Performed; Puncture Site Left Radial
[2025-01-19 12:17] LABS: PO2 41 mmHg (83-108); pH, Arterial 7.05 (7.35-7.45)
[2025-01-19] MEDS: INSULIN REG 100 UNITS/100 ML 100 UNIT in PRE-MIXED 1 BAG 8.754 UNIT IV ×2 (12:20→22:45)
[2025-01-19] MEDS: POT CHL ADDITIVE 20 MEQ in RINGERS LACTATED 1000 ML 1,000 ML 250 MEQ IV ×2 (12:54→16:53)
[2025-01-19 13:17] LABS: Lactate (Lactic Acid) 2.6 mMol/L (0.4-2.0)
[2025-01-19 13:48] LABS: Albumin, Serum 4.0 gm/dL (3.5-5.0); Anion Gap 25 (7-16); BUN/Creatinine Ratio 12 Ratio (12-20); Blood Urea Nitrogen 19 mg/dL (9-23); Calcium 8.5 mg/dL (8.3-10.6); Calcium (Corrected) 8.5 mg/dL (8.5-10.1); Chloride 108 mMol/L (98-107); Creatinine (Component) 1.6 mg/dL (0.6-1.3); Estimated Creatinine Clearance 65.5 mL/min (>60); Magnesium 1.9 mg/dL (1.6-2.6); Osmolality,Calculated 308 (275-295); Phosphorous 2.8 mg/dL (2.4-5.1); Potassium 3.9 mMol/L (3.4-5.1); Sodium 143 mMol/L (136-145); eGFR 58 See Note
[2025-01-19 13:51] LABS: Carbon Dioxide < 10.0 mMol/L (20.0-31.0); Glucose 485 mg/dL (74-106)
[2025-01-19 16:15] LABS: Reflex Lactate? Y
[2025-01-19 17:46] LABS: Lactate (Lactic Acid) 1.8 mMol/L (0.4-2.0)
[2025-01-19 18:31] LABS: Albumin, Serum 3.6 gm/dL (3.5-5.0); Anion Gap 21 (7-16); BUN/Creatinine Ratio 14 Ratio (12-20); Blood Urea Nitrogen 19 mg/dL (9-23); Calcium 8.5 mg/dL (8.3-10.6); Calcium (Corrected) 8.8 mg/dL (8.5-10.1); Chloride 113 mMol/L (98-107); Creatinine (Component) 1.4 mg/dL (0.6-1.3); Estimated Creatinine Clearance 74.9 mL/min (>60); Glucose 223 mg/dL (74-106); Magnesium 1.8 mg/dL (1.6-2.6); Osmolality,Calculated 296 (275-295); Phosphorous 1.1 mg/dL (2.4-5.1); Potassium 4.0 mMol/L (3.4-5.1); Sodium 144 mMol/L (136-145); eGFR > 60 See Note
[2025-01-19] MEDS: POT CHL ADDITIVE 20 MEQ in DEXTROSE 5%-LACTATED RINGERS 1,000 ML 250 MEQ IV (18:31)
[2025-01-19 18:32] LABS: Carbon Dioxide < 10.0 mMol/L (20.0-31.0)
[2025-01-19] MEDS: ONDANSETRON INJ 2 MG/ML INJ 2 ML 4 MG IVP (20:17)
[2025-01-19 20:27] LABS: Lactate (Lactic Acid) 1.6 mMol/L (0.4-2.0)
[2025-01-19] MEDS: HEPARIN SOD INJ 5000 UNIT/ML VIAL SC (20:37)
[2025-01-19 20:47] LABS: Albumin, Serum 3.5 gm/dL (3.5-5.0); Anion Gap 16 (7-16); BUN/Creatinine Ratio 12 Ratio (12-20); Blood Urea Nitrogen 14 mg/dL (9-23); Calcium 8.5 mg/dL (8.3-10.6); Calcium (Corrected) 8.9 mg/dL (8.5-10.1); Carbon Dioxide 15.4 mMol/L (20.0-31.0); Chloride 114 mMol/L (98-107); Creatinine (Component) 1.2 mg/dL (0.6-1.3); Estimated Creatinine Clearance 87.4 mL/min (>60); Glucose 180 mg/dL (74-106); Magnesium 1.7 mg/dL (1.6-2.6); Osmolality,Calculated 294 (275-295); Potassium 3.4 mMol/L (3.4-5.1); Sodium 145 mMol/L (136-145); eGFR > 60 See Note
[2025-01-19 21:06] LABS: Phosphorous 0.5 mg/dL (2.4-5.1)
[2025-01-19] MEDS: Magnesium Sulfate 2 GM Ivpb 2 GM/50 ML BAG IV (21:24)
[2025-01-19] MEDS: POT PHOS 15 mMol in NS 250 ML 15 MMOL/250 ML BAG 62.5 MMOL IV (21:24)
[2025-01-20] VITALS (15 sets, daily range): BP systolic 99–120; BP diastolic 58–78; PULSE 70–100; RESP 14–98; TEMP 36.3–36.4; O2SAT 96–99; BMI 29.5
[2025-01-20 01:03] LABS: Lactate (Lactic Acid) 0.8 mMol/L (0.4-2.0)
[2025-01-20 01:34] LABS: Albumin, Serum 2.9 gm/dL (3.5-5.0); Anion Gap 11 (7-16); BUN/Creatinine Ratio 9 Ratio (12-20); Blood Urea Nitrogen 10 mg/dL (9-23); Calcium 8.4 mg/dL (8.3-10.6); Calcium (Corrected) 9.3 mg/dL (8.5-10.1); Carbon Dioxide 17.7 mMol/L (20.0-31.0); Chloride 115 mMol/L (98-107); Creatinine (Component) 1.1 mg/dL (0.6-1.3); Estimated Creatinine Clearance 95.3 mL/min (>60); Glucose 188 mg/dL (74-106); Magnesium 2.1 mg/dL (1.6-2.6); Osmolality,Calculated 290 (275-295); Phosphorous 1.6 mg/dL (2.4-5.1); Potassium 3.4 mMol/L (3.4-5.1); Sodium 144 mMol/L (136-145); eGFR > 60 See Note
[2025-01-20] MEDS: POT CHL ADDITIVE 20 MEQ in DEXTROSE 5%-LACTATED RINGERS 1,000 ML 250 MEQ IV ×2 (01:45→07:20)
[2025-01-20] MEDS: POT CHL ADDITIVE 20 MEQ in RINGERS LACTATED 1000 ML 1,000 ML 250 MEQ IV (02:32)
[2025-01-20 05:54] LABS: Lactate (Lactic Acid) 1.0 mMol/L (0.4-2.0)
[2025-01-20 06:04] LABS: Basophils # (Auto) 0.0 Thou/mm3 (0.0-0.2); Basophils % (Auto) 0 % (0-2.5); Eosinophils # (Auto) 0.1 Thou/mm3 (0.0-0.5); Eosinophils % (Auto) 2 % (0-10); Hematocrit 34.4 % (41.0-53.0); Hemoglobin 12.2 g/dL (13.5-16.0); Immature Granulocytes Auto 0.02 Thou/mm3 (0.00-0.00); Lymphocytes # (Auto) 1.0 Thou/mm3 (1.0-4.8); Lymphocytes % (Auto) 16 % (10-50); Mean Corpuscular HGB Conc 35.5 g/dl (31.0-37.0); Mean Corpuscular Hemoglobin 28.7 pg (25.0-35.0); Mean Corpuscular Volume 81 fL (80-100); Monocytes # (Auto) 0.8 Thou/mm3 (0.0-0.8); Monocytes % (Auto) 13 % (0-12); Neutrophils # (Auto) 4.3 Thou/mm3 (1.8-7.7); Neutrophils % (Auto) 69 % (37-80); Nucleated Red Blood Cell # 0.00 Thou/mm3 (0.00-0.00); Nucleated Red Blood Cell % 0 /100 WBC (0); Platelet Count 176 Thou/mm3 (140-440); RDW Standard Deviation 38.0 fL (35.1-43.9); Red Blood Count 4.25 Miln/mm3 (4.50-5.90); White Blood Count 6.3 Thou/mm3 (3.8-10.6)
[2025-01-20 06:25] LABS: Albumin, Serum 3.0 gm/dL (3.5-5.0); Anion Gap 11 (7-16); BUN/Creatinine Ratio 12 Ratio (12-20); Blood Urea Nitrogen 12 mg/dL (9-23); Calcium 8.6 mg/dL (8.3-10.6); Calcium (Corrected) 9.4 mg/dL (8.5-10.1); Carbon Dioxide 19.3 mMol/L (20.0-31.0); Chloride 115 mMol/L (98-107); Creatinine (Component) 1.0 mg/dL (0.6-1.3); Estimated Creatinine Clearance 104.8 mL/min (>60); Glucose 177 mg/dL (74-106); Magnesium 2.0 mg/dL (1.6-2.6); Osmolality,Calculated 292 (275-295); Phosphorous 1.4 mg/dL (2.4-5.1); Potassium 3.1 mMol/L (3.4-5.1); Sodium 145 mMol/L (136-145); eGFR > 60 See Note
[2025-01-20 06:29] LABS: Glucose Estimated Average 301 mg/dL (80-131); Hemoglobin A1C 12.1 % Hgb (4.8-6.0)
[2025-01-20] MEDS: POTASSIUM CHL 10 mEq IVPB 10 MEQ/100 ML BAG 100 MEQ IV (06:42)
[2025-01-20] MEDS: INSULIN DEGLUDEC 5 UNIT/0.05 ML (PER 5 UNITS) 13 UNIT SC (07:38)
[2025-01-20 08:09] LABS: Lactate (Lactic Acid) 1.3 mMol/L (0.4-2.0)
[2025-01-20 08:36] LABS: Magnesium 2.0 mg/dL (1.6-2.6); Phosphorous 1.1 mg/dL (2.4-5.1)
[2025-01-20] MEDS: PANTOPRAZOLE 40 MG TABLET PO (09:57)
[2025-01-20] MEDS: INSULIN LISPRO (AdmeLOG) 1 UNIT/0.01 ML UNIT 4 UNIT SC ×3 (09:57→17:56)
[2025-01-20] MEDS: HEPARIN SOD INJ 5000 UNIT/ML VIAL SC ×2 (09:57→20:00)
[2025-01-20] MEDS: POT PHOS 15 mMol in NS 250 ML 15 MMOL/250 ML BAG 62.5 MMOL IV ×2 (10:24→16:24)
--- NOTE | 2025-01-20 11:13 | PC.NURSE ---
REPORT CALLED TO THONG PRIETO @[id number] PT WENT TO ROOM [id number]
[2025-01-20] MEDS: NAPH,KPH MBDB 1 PACKET (1.5 GM) PO ×2 (12:29→17:57)
[2025-01-20] MEDS: INSULIN LISPRO (AdmeLOG) 1 UNIT/0.01 ML UNIT SC ×2 (12:29→17:56)
--- NOTE | 2025-01-20 14:13 | ESPR_ITS ---
Documentation for date of: 01/20/25 Subjective Subjective Interval history: Patient is a 34-year-old Croatian-speaking male with past medical history of diabetes mellitus first diagnosed in 2020 after a previous episode of DKA, but has not been taking any medication presented to the ED on 02/19/2025 with a chief complaint of epigastric abdominal pain, nausea, and non-bloody vomiting for 2 days. Patient reported that prior to this he was in his usual state of health. He reported possible subjective fever. And endorsed on the day of admission significant shortness of breath for which he came to the ED for further evaluation. He denied cough, burning micturition, syncopal episodes, diarrhea, recent sick contacts, or flulike illness. Reported that he is not following with any primary care provider and does not take any medications for diabetes mellitus except some herbal supplements. On ED evaluation, he was found to have significant acidosis with initial VBG showing pH 6.91, bicarb less than 10 on the CMP. Glucose 604, beta hydroxybutyrate 6.4. Lactic acid was 2.6. CXR and UA were negative for suspicion of infectious processes. Abdominal US showed gallstones but no cholecystitis. He had significant Kussmaul breathing on examination. Patient was resuscitated with IV fluids, started on insulin drip, and admitted to the ICU for further DKA management. 01/20/2025: No overnight events. The patient appeared to be doing well this morning, and reports no further vomiting episodes. He has mild nausea and abdominal pain, but they are significantly improved from yesterday. He has some appetite returning. Anion gap of 11 was closed on labs around midnight, and maintained closed anion gap on labs at 6 am. This morning the patient received 13 U insulin degludec at 7:38, and insulin drip was stopped 1 hour after. Patient was started on 13 U basal qday and 4 U lispro AC, along with sliding scale. Electrolytes were repleted. Patient was counseled with the help of [facility] automotive parts interpreter regarding his A1c and importance of taking insulin for his diabetes, patient will need to be set up with a PCP outpatient. Received counseling from board runner as well. The patient likely has some insulin secretion intact given he has not presented for DKA in some time despite being off all medications including insulin, so likely some component of both type 1 and type 2 diabetes. Will benefit from C-peptide and outpatient studies. Patient is determined stable for downgrade to [facility]. Exam Vital Signs Temp Pulse Resp BP Pulse Ox O2 Del Method 97.6 F 100 18 109/60 99 Room Air 01/20/25 08:00 01/20/25 11:05 01/20/25 11:05 01/20/25 10:00 01/20/25 11:05 01/20/25 07:00 Narrative Exam Physical Exam General: Awake and in no acute distress. Conversational and non-toxic appearing. HEENT: Normocephalic, atraumatic, mucous membranes moist. Heart: Regular rate and rhythm, normal S1 and S2, no murmurs. Lungs: Clear to auscultation with no wheezing or crackles. Abdomen: Soft, nondistended, mild tenderness to epigastric region, positive bowel sounds. ?No guarding or rebound tenderness. Neurologic: Alert and oriented x3, no gross neurological deficit, and patient able to move all 4 extremities. Extremities: No edema. Skin: No rash or ecchymoses. Objective Labs 01/21/25 05:07 01/21/25 05:07 Labs: Laboratory Results - last 24 hr 01/19/25 01/19/25 01/20/25 17:23 20:20 00:49 WBC RBC Hgb Hct MCV MCH MCHC RDW Std Deviation Plt Count Neut % (Auto) Lymph % (Auto) [place] % (Auto) Eos % (Auto) Baso % (Auto) Neut # (Auto) Lymph # (Auto) [place] # (Auto) Eos # (Auto) Baso # (Auto) Immature Gran # (Auto) Absolute Nucleated RBC Immature Gran % Nucleated RBC % Sodium 144 145 144 Potassium 4.0 3.4 D 3.4 Chloride 113 H 114 H 115 H Carbon Dioxide < 10.0 L* 15.4 L 17.7 L Anion Gap 21 H 16 11 BUN 19 14 10 Creatinine 1.4 H 1.2 1.1 Estim Creat Clear Calc 74.9 87.4 95.3 eGFR > 60 > 60 > 60 BUN/Creatinine Ratio 14 12 9 L Glucose 223 H D [address] Glu mg/dL Hemoglobin A1c Calculated Osmolality 296 H 294 290 Lactic Acid 1.8 1.6 0.8 Calcium 8.5 8.5 8.4 Corrected Calcium 8.8 8.9 9.3 Phosphorus 1.1 L 0.5 L* 1.6 L Magnesium 1.8 1.7 2.1 Albumin 3.6 3.5 2.9 L D 01/20/25 01/20/25 05:39 07:56 WBC 6.3 D RBC 4.25 L Hgb 12.2 L D Hct 34.4 L D MCV 81 MCH 28.7 MCHC 35.5 RDW Std Deviation 38.0 Plt Count 176 D Neut % (Auto) 69 Lymph % (Auto) 16 [place] % (Auto) 13 H Eos % (Auto) 2 Baso % (Auto) 0 Neut # (Auto) 4.3 Lymph # (Auto) 1.0 [place] # (Auto) 0.8 Eos # (Auto) 0.1 Baso # (Auto) 0.0 Immature Gran # (Auto) 0.02 H Absolute Nucleated RBC 0.00 Immature Gran % 0 Nucleated RBC % 0 Sodium 145 Potassium 3.1 L Chloride 115 H Carbon Dioxide 19.3 L Anion Gap 11 BUN 12 Creatinine 1.0 Estim Creat Clear Calc 104.8 eGFR > 60 BUN/Creatinine Ratio [address] Glu mg/dL 301 H Hemoglobin A1c 12.1 H Calculated Osmolality 292 Lactic Acid 1.0 1.3 Calcium 8.6 Corrected Calcium 9.4 Phosphorus 1.4 L 1.1 L Magnesium 2.0 2.0 Albumin 3.0 L ABG Interpretation ABG results: 01/19/25 01/19/25 10:06 12:11 ABG pH 7.05 L* ABG pCO2 20 L ABG pO2 41 L* ABG HCO3 6 L* ABG O2 Saturation 70 L ABG Base Excess -23 L VBG pH 6.91 L VBG pCO2 29 L VBG pO2 47 VBG Base Excess -27 L Quality Measures Quality Measures none Assessment & Plan Assessment Current Active Medications: Generic Name Dose Route Start Last Admin Trade Name Freq PRN Reason Stop Dose Admin Acetaminophen 650 mg 01/19/25 11:55 Acetaminophen 325 Mg Tablet PO 02/18/25 11:54 Q4HR PRN PAIN SCALE 1-3 (mild Dextrose 25 ml 01/20/25 07:10 Dextrose 50%-Water Inj 50 Ml Syringe IV 02/19/25 07:09 Q15MIN PRN BG 50-70 responsive npo pt Dextrose 50 ml 01/20/25 07:10 Dextrose 50%-Water Inj 50 Ml Syringe IV 02/19/25 07:09 Q15MIN PRN BG <50 OR BG <70 & pt unresponsive Glucagon 1 mg 01/20/25 07:10 Glucagon Inj 1 Mg Vial IM Q15MIN PRN BG <70, and no IV access Heparin Sodium (Porcine) 5,000 unit 01/19/25 21:00 01/20/25 09:57 Heparin Sod Inj 5000 Unit/Ml Vial SC 02/02/25 20:59 5,000 unit Q12HR IRINEO Administration Potassium Phosphate 15 mmol in 250 mls @ 62.5 mls/hr 01/20/25 09:15 01/20/25 10:24 Pot Phos 15 Mmol In Ns 250 Ml IV 01/20/25 17:14 62.5 mls/hr Q4H IRINEO Administration Insulin Degludec 13 unit 01/20/25 07:10 01/20/25 09:12 Insulin Degludec 5 Unit/0.05 Ml (Per 5 Units) SC 02/19/25 07:09 Not Given QDAY IRINEO Insulin Human Lispro 0 unit 01/20/25 07:30 01/20/25 12:29 Insulin Lispro (Admelog) 1 Unit/0.01 Ml Unit SC 02/19/25 07:29 3 unit AC IRINEO Administration Protocol Insulin Human Lispro 4 unit 01/20/25 11:30 01/20/25 12:29 Insulin Lispro (Admelog) 1 Unit/0.01 Ml Unit SC 02/19/25 11:29 4 unit AC IRINEO Administration Ondansetron HCl 4 mg 01/19/25 18:29 01/19/25 20:17 Ondansetron Inj 2 Mg/Ml Inj 2 Ml IVP 02/18/25 18:28 4 mg Q6HR PRN Administration NAUSEA OR VOMITING Protocol Pantoprazole Sodium 40 mg 01/20/25 09:00 01/20/25 09:57 Pantoprazole 40 Mg Tablet PO 02/19/25 08:59 40 mg QDAY IRINEO Administration Potassium Phos/Sodium Phos 1 packet 01/20/25 12:00 01/20/25 12:29 Naph,Kph Mbdb 1 Packet (1.5 Gm) PO 01/21/25 17:31 1 packet BIDWM IRINEO Administration Plan A 34-year-old male with significant past medical history of DKA, diagnosed with diabetes mellitus during that episode but not on any medication and notes that he is using some herbal supplements presented to the ED on 01/19/2025 with chief complaints of abdominal pain, nausea and vomiting since 2 days and admitted in the ICU for further management of DKA. Subsequently downgraded to MedSurg and transitioned to subQ insulin on 01/20/2025. Neuro - No active problems Cardio #Sinus tachycardia - resolved - Likely in the setting of ongoing dehydration secondary to DKA - Patient denies chest pain, syncopal-like episodes - EKG done at the time of admission showed sinus tachycardia without any ST and T wave changes Pulm #Kussmaul respirations - resolved - Noted to have respiratory rate of 30/min - Likely compensatory to the ongoing metabolic acidosis - Treated underlying DKA Renal #High anion gap metabolic acidosis - resolved #Diabetic ketoacidosis - resolved #Lactic acidosis - resolved - Likely in the setting of ongoing DKA and severe dehydration - At the time of admission, noted to have bicarb less than 10, anion gap 27, lactate is 2.6, beta hydroxybutyrate is 6.4 - ABG done at the time of admission showed pH 7.05, bicarb 6, pCO2 20 Plan: - Transitioned to subQ insulin - Discontinued q6 renal panel - Continue electrolyte repletion #GABBY - resolved - Likely prerenal in the setting of severe DKA causing dehydration and hypovolemia - Baseline creatinine is 0.6 in 2020 - At the time of admission, creatinine is 1.9, BUN 26 - Patient received 4 L bolus in the ED - Downtrended creatinine to baseline Plan: - Continue oral hydration Endo #Diabetic ketoacidosis #Diabetes mellitus, likely type 1.5 - Patient had history of DKA in 2020 and was diagnosed to have diabetes mellitus at that time - The patient likely has some insulin secretion intact given he has not presented for DKA in some time despite being off all medications including insulin, so likely some component of both type 1 and type 2 diabetes - Patient was supposed to use insulin but not compliant with medications and endorsed that he is using some herbal supplements for that and previously used metformin occasionally - Denies following up with any primary care provider - Presented to the hospital with chief complaints of abdominal pain, nausea and vomiting - No suspicion of any infection as of now - At the time of admission noted to have pH 6.9, beta hydroxybutyrate 6.4, glucose 604 - 4 L of LR boluses given in the ED - A1c 12.1 Plan: - Will continue to monitor renal functions and electrolytes, replete as needed - Started on insulin degludec 13 U once daily - Insulin lispro 4 U with meals - Insulin sliding scale step 1 for additional coverage as needed - Started on diet - Bedside blood glucose checks ACHS - Continue education and counseling - Set up patient with PCP and CGM GI #GI prophylaxis - Started on pantoprazole given epigastric discomfort, nausea/vomiting #Nausea and vomiting - resolved - Likely in the setting of DKA, resolving - Will treat underlying condition and ondansetron as needed, start meals ID #No active problems Musculoskeletal #No active problems Hospital Maintenance: Dispo: ICU DVT ppx: heparin GI ppx: pantoprazole Diet: carb consistent low IV lines: peripheral Code status: Full Patient plan of care was discussed with the attending physician, Dr. Pack. Marielos Don, PGY-3 Attending Provider Attestation/Addendum Patient seen and examined with above resident, Marielos Don MD. I agree with the findings, assessment, and plan of care as document except for any differences below. Patient admitted with diabetic ketoacidosis due to noncompliance. No precipitating ischemic or infectious etiology. Patient subsidy transition back to subcutaneous regimen today and can be transferred to medicine [facility] for ongoing management prior to discharge in the next 24 to 48 hours. Electrolyte replacement as per protocol based on serial testing while he was on DKA regimen. His GABBY has now resolved with adequate fluid resuscitation. Mentation and respiratory status have normalized. Patient counseled on importance of being compliant with his medications in the long run and discussing issues with his meds with his primary care doctor prior to any discontinuation. Total critical care time: I personally spent 35 minutes for review of physiologic parameters, directing plan of care throughout the day, coordination of care with other specialties, and counseling patient at bedside. This is exclusive of time spent teaching housestaff performing any separate billable procedures. Patient remains at significant risk for further morbidity and mortality warranting close monitoring and care only available in the ICU. Critical care services required for diabetic ketoacidosis without coma and acute renal failure.
--- NOTE | 2025-01-20 16:00 | PC.NURSE ---
called Pharmacy for 2nd PotPhos
[2025-01-20 16:06] LABS: Albumin, Serum 3.0 gm/dL (3.5-5.0); Anion Gap 10 (7-16); BUN/Creatinine Ratio 11 Ratio (12-20); Blood Urea Nitrogen 10 mg/dL (9-23); Calcium 8.4 mg/dL (8.3-10.6); Calcium (Corrected) 9.2 mg/dL (8.5-10.1); Carbon Dioxide 22.5 mMol/L (20.0-31.0); Chloride 109 mMol/L (98-107); Creatinine (Component) 0.9 mg/dL (0.6-1.3); Estimated Creatinine Clearance 111.7 mL/min (>60); Glucose 205 mg/dL (74-106); Osmolality,Calculated 286 (275-295); Phosphorous 2.1 mg/dL (2.4-5.1); Potassium 3.2 mMol/L (3.4-5.1); Sodium 141 mMol/L (136-145); eGFR > 60 See Note
--- NOTE | 2025-01-20 18:37 | ESPR_ITS ---
<Statement entered by Riki Thompson MD - 01/21/25 14:31> I attest that I was physically present for the evaluation, physical examination, lab and imaging review of the patient with the residents. I discussed the case with the residents and agree with the findings and plans of care as documented below. Patient is a 34 years old male with past medical history of DKA, diabetes mellitus currently not on medication who presented to the ED with complaint of abdominal pain, nausea and vomiting for last couple days. He was found to be in DKA and was admitted to ICU. Patient received insulin drip, aggressive IV hydration. With intervention, patient's gap closed twice, he was started on subcutaneous insulin and diet and was transferred to telemetry for further management. At bedside today, patient does not have any complaints, he has been tolerating his diet well. Vital signs are stable, lab results are stable as well. We will continue with insulin degludec 13 units daily along with lispro 4 units with meals. Frequent glucose checks, hypoglycemia protocol in place. Patient counseled regarding medication compliance, use of insulin. Registered dietitian following. Patient will follow outpatient regarding his incidental cholelithiasis. Anticipate discharge in next 24 to 48 hours if remains stable and blood glucoses controlled with current regimen. Riki Thompson MD Documentation for date of: 01/20/25 Subjective Subjective Interval history: 34-year-old male with past medical history of type 2 diabetes mellitus diagnosed in DKA, previous episodes of DKA and medication noncompliance admitted to ICU on January 19, 2025 with diabetic ketoacidosis. Patient's gap closed twice, tolerating p.o. diet well blood glucose within normal limits on subcu insulin electrolytes replaced by ICU team. Patient downgraded to telemetry after stabilization. Seen and examined at bedside has no current complaints reports tolerating diet well, patient received counseling from dietitian already diabetic education provided to patient. Will monitor blood glucose levels overnight likely anticipate discharge in a.m. Suspicion of component of type I versus type 2 diabetes will benefit from outpatient studies. Exam Vital Signs Temp Pulse Resp BP Pulse Ox O2 Del Method 97.6 F 100 18 109/60 99 Room Air 01/20/25 08:00 01/20/25 11:05 01/20/25 11:05 01/20/25 10:00 01/20/25 11:05 01/20/25 07:00 Narrative Exam Physical Exam General: Awake and in no acute distress. Conversational and non-toxic appearing. HEENT: Normocephalic, atraumatic, mucous membranes moist. Heart: Regular rate and rhythm, normal S1 and S2, no murmurs. Lungs: Clear to auscultation with no wheezing or crackles. Abdomen: Soft, nondistended, mild tenderness to epigastric region, positive bowel sounds. ?No guarding or rebound tenderness. Neurologic: Alert and oriented x3, no gross neurological deficit, and patient able to move all 4 extremities. Extremities: No edema. Skin: No rash or ecchymoses. Objective Labs 01/21/25 05:07 01/21/25 05:07 Labs: Laboratory Results - last 24 hr 01/19/25 01/20/25 01/20/25 20:20 00:49 05:39 WBC 6.3 D RBC 4.25 L Hgb 12.2 L D Hct 34.4 L D MCV 81 MCH 28.7 MCHC 35.5 RDW Std Deviation 38.0 Plt Count 176 D Neut % (Auto) 69 Lymph % (Auto) 16 [place] % (Auto) 13 H Eos % (Auto) 2 Baso % (Auto) 0 Neut # (Auto) 4.3 Lymph # (Auto) 1.0 [place] # (Auto) 0.8 Eos # (Auto) 0.1 Baso # (Auto) 0.0 Immature Gran # (Auto) 0.02 H Absolute Nucleated RBC 0.00 Immature Gran % 0 Nucleated RBC % 0 Sodium 145 144 145 Potassium 3.4 D 3.4 3.1 L Chloride 114 H 115 H 115 H Carbon Dioxide 15.4 L 17.7 L 19.3 L Anion Gap 16 11 11 BUN 14 10 12 Creatinine 1.2 1.1 1.0 Estim Creat Clear Calc 87.4 95.3 104.8 eGFR > 60 > 60 > 60 BUN/Creatinine Ratio 12 9 L 12 Glucose 180 H [address] Glu mg/dL 301 H Hemoglobin A1c 12.1 H Calculated Osmolality 294 290 292 Lactic Acid 1.6 0.8 1.0 Calcium 8.5 8.4 8.6 Corrected Calcium 8.9 9.3 9.4 Phosphorus 0.5 L* 1.6 L 1.4 L Magnesium 1.7 2.1 2.0 Albumin 3.5 2.9 L D 3.0 L 01/20/25 01/20/25 07:56 15:30 WBC RBC Hgb Hct MCV MCH MCHC RDW Std Deviation Plt Count Neut % (Auto) Lymph % (Auto) [place] % (Auto) Eos % (Auto) Baso % (Auto) Neut # (Auto) Lymph # (Auto) [place] # (Auto) Eos # (Auto) Baso # (Auto) Immature Gran # (Auto) Absolute Nucleated RBC Immature Gran % Nucleated RBC % Sodium 141 Potassium 3.2 L Chloride 109 H Carbon Dioxide 22.5 Anion Gap 10 BUN 10 Creatinine 0.9 Estim Creat Clear Calc 111.7 eGFR > 60 BUN/Creatinine Ratio 11 L Glucose [address] Glu mg/dL Hemoglobin A1c Calculated Osmolality 286 Lactic Acid 1.3 Calcium 8.4 Corrected Calcium 9.2 Phosphorus 1.1 L 2.1 L Magnesium 2.0 Albumin 3.0 L ABG Interpretation ABG results: 01/19/25 01/19/25 10:06 12:11 ABG pH 7.05 L* ABG pCO2 20 L ABG pO2 41 L* ABG HCO3 6 L* ABG O2 Saturation 70 L ABG Base Excess -23 L VBG pH 6.91 L VBG pCO2 29 L VBG pO2 47 VBG Base Excess -27 L Quality Measures Quality Measures none Assessment & Plan Assessment Current Active Medications: Generic Name Dose Route Start Last Admin Trade Name Freq PRN Reason Stop Dose Admin Acetaminophen 650 mg 01/19/25 11:55 Acetaminophen 325 Mg Tablet PO 02/18/25 11:54 Q4HR PRN PAIN SCALE 1-3 (mild Dextrose 25 ml 01/20/25 07:10 Dextrose 50%-Water Inj 50 Ml Syringe IV 02/19/25 07:09 Q15MIN PRN BG 50-70 responsive npo pt Dextrose 50 ml 01/20/25 07:10 Dextrose 50%-Water Inj 50 Ml Syringe IV 02/19/25 07:09 Q15MIN PRN BG <50 OR BG <70 & pt unresponsive Glucagon 1 mg 01/20/25 07:10 Glucagon Inj 1 Mg Vial IM Q15MIN PRN BG <70, and no IV access Heparin Sodium (Porcine) 5,000 unit 01/19/25 21:00 01/20/25 09:57 Heparin Sod Inj 5000 Unit/Ml Vial SC 02/02/25 20:59 5,000 unit Q12HR IRINEO Administration Insulin Degludec 13 unit 01/20/25 07:10 01/20/25 09:12 Insulin Degludec 5 Unit/0.05 Ml (Per 5 Units) SC 02/19/25 07:09 Not Given QDAY IRINEO Insulin Human Lispro 0 unit 01/20/25 07:30 01/20/25 17:56 Insulin Lispro (Admelog) 1 Unit/0.01 Ml Unit SC 02/19/25 07:29 2 unit AC IRINEO Administration Protocol Insulin Human Lispro 4 unit 01/20/25 11:30 01/20/25 17:56 Insulin Lispro (Admelog) 1 Unit/0.01 Ml Unit SC 02/19/25 11:29 4 unit AC IRINEO Administration Ondansetron HCl 4 mg 01/19/25 18:29 01/19/25 20:17 Ondansetron Inj 2 Mg/Ml Inj 2 Ml IVP 02/18/25 18:28 4 mg Q6HR PRN Administration NAUSEA OR VOMITING Protocol Pantoprazole Sodium 40 mg 01/20/25 09:00 01/20/25 09:57 Pantoprazole 40 Mg Tablet PO 02/19/25 08:59 40 mg QDAY IRINEO Administration Potassium Phos/Sodium Phos 1 packet 01/20/25 12:00 01/20/25 17:57 Naph,On License Of [facility] Mbdb 1 Packet (1.5 Gm) PO 01/21/25 17:31 1 packet BIDWM RIINEO Administration Plan Assessment and plan: Summary: Mr. Silva is a 34-year-old male with past medical history of type 2 diabetes mellitus diagnosed in DKA, previous episodes of DKA and medication noncompliance admitted to ICU on January 19, 2025 with diabetic ketoacidosis. Patient's gap closed twice, tolerating p.o. diet well blood glucose within normal limits on subcu insulin electrolytes replaced by ICU team. Patient downgraded to telemetry after stabilization. #DKA resolved #Diabetes mellitus, type I versus type II, A1c 12.1 Patient had history of DKA in 2020 was diagnosed with diabetes mellitus, noncompliant with medication outpatient. Patient endorses using herbal supplements and was previously using metformin occasionally. Denies following up with PCP, no suspicion of infection, EKG within normal limits likely trigger for DKA medication noncompliance. At time of admission pH 6.9 beta hydroxybutyrate 6.4 glucose 604, 4 L bolus in ED - Continue insulin degludec 13 units daily - Continue insulin lispro 4 units with meals - Continue sliding scale step 1 as needed for coverage - Fingerstick ACHS - Referral to dietitian, diabetic education - Correct and replace electrolytes as needed - Follow blood cultures #Cholelithiasis Abdominal ultrasound shows cholelithiasis negative for cholecystitis - Outpatient follow-up #Normocytic normochromic anemia Outpatient anemia workup #Electrolyte abnormality #Hypokalemia #Hypophosphatemia - Correct and replace electrolytes as needed #GABBY resolved #High anion gap metabolic acidosis resolved #Lactic acidosis resolved #Kussmaul respiration resolved #Sinus tachycardia resolved DVT prophylaxis: Heparin Q12 GI prophylaxis: Protonix PO Diet: Carb Consistent Low Lines: Peripheral IV Code status: Full Code Case discussed with Attending Physician Dr. Donna Perez MD Internal Medicine PGY-2 Disclaimer: This note was dictated by speech recognition. Minor errors in weekend caregiver may be present due to voice recognition software.
[2025-01-21 04:00] VITALS: BP 116/83; PULSE 77; RESP 18; TEMP 36.6; O2SAT 96
[2025-01-21 06:00] VITALS: BMI 29.5
[2025-01-21 06:13] LABS: Basophils # (Auto) 0.0 Thou/mm3 (0.0-0.2); Basophils % (Auto) 0 % (0-2.5); Eosinophils # (Auto) 0.1 Thou/mm3 (0.0-0.5); Eosinophils % (Auto) 2 % (0-10); Hematocrit 33.5 % (41.0-53.0); Hemoglobin 11.8 g/dL (13.5-16.0); Immature Granulocytes Auto 0.03 Thou/mm3 (0.00-0.00); Lymphocytes # (Auto) 1.7 Thou/mm3 (1.0-4.8); Lymphocytes % (Auto) 32 % (10-50); Mean Corpuscular HGB Conc 35.2 g/dl (31.0-37.0); Mean Corpuscular Hemoglobin 28.9 pg (25.0-35.0); Mean Corpuscular Volume 82 fL (80-100); Monocytes # (Auto) 0.6 Thou/mm3 (0.0-0.8); Monocytes % (Auto) 12 % (0-12); Neutrophils # (Auto) 2.9 Thou/mm3 (1.8-7.7); Neutrophils % (Auto) 54 % (37-80); Nucleated Red Blood Cell # 0.00 Thou/mm3 (0.00-0.00); Nucleated Red Blood Cell % 0 /100 WBC (0); Platelet Count 144 Thou/mm3 (140-440); RDW Standard Deviation 39.0 fL (35.1-43.9); Red Blood Count 4.09 Miln/mm3 (4.50-5.90); White Blood Count 5.4 Thou/mm3 (3.8-10.6)
[2025-01-21 06:32] LABS: Alanine Aminotransferase 23 U/L (10-49); Albumin, Serum 3.3 gm/dL (3.5-5.0); Albumin/Globulin Ratio 1.9 (1.2-2.2); Alkaline Phosphatase 60 U/L (46-116); Anion Gap 15 (7-16); Aspartate Amino Transferase 20 U/L (0-34); BUN/Creatinine Ratio 10 Ratio (12-20); Bilirubin,Total 0.6 mg/dL (0.3-1.2); Blood Urea Nitrogen 8 mg/dL (9-23); Calcium 8.9 mg/dL (8.3-10.6); Calcium (Corrected) 9.5 mg/dL (8.5-10.1); Carbon Dioxide 22.9 mMol/L (20.0-31.0); Chloride 104 mMol/L (98-107); Creatinine (Component) 0.8 mg/dL (0.6-1.3); Estimated Creatinine Clearance 125.7 mL/min (>60); Globulin 1.7 gm/dL (2.3-3.5); Glucose 226 mg/dL (74-106); Magnesium 1.9 mg/dL (1.6-2.6); Osmolality,Calculated 288 (275-295); Phosphorous 2.3 mg/dL (2.4-5.1); Potassium 3.2 mMol/L (3.4-5.1); Sodium 142 mMol/L (136-145); Total Protein 5.0 gm/dL (5.7-8.2); eGFR > 60 See Note
[2025-01-21 07:57] VITALS: BP 132/69; PULSE 66; RESP 18; TEMP 37; O2SAT 96
[2025-01-21] MEDS: HEPARIN SOD INJ 5000 UNIT/ML VIAL SC (09:08)
[2025-01-21] MEDS: INSULIN DEGLUDEC 5 UNIT/0.05 ML (PER 5 UNITS) 13 UNIT SC (09:08)
[2025-01-21] MEDS: INSULIN LISPRO (AdmeLOG) 1 UNIT/0.01 ML UNIT SC ×2 (09:08→12:52)
[2025-01-21] MEDS: NAPH,KPH MBDB 1 PACKET (1.5 GM) PO (09:08)
[2025-01-21] MEDS: PANTOPRAZOLE 40 MG TABLET PO (09:08)
[2025-01-21] MEDS: INSULIN LISPRO (AdmeLOG) 1 UNIT/0.01 ML UNIT 4 UNIT SC ×2 (09:09→12:53)
[2025-01-21 10:56] VITALS: PULSE 63; RESP 18; RESP 98
[2025-01-21 11:01] LABS: Cardiac Risk Estimate 3.4 RATIO (4.0-6.7); Cholesterol 116 mg/dL (132-200); HDL Cholesterol 34 mg/dL (40-60); LDL Cholesterol,Calculated 46 mg/dL (0-130); Triglycerides 178 mg/dL (30-150)
[2025-01-21] MEDS: Milk Of Magnesia Susp 30 ML UDC PO (11:07)
[2025-01-21] MEDS: SENNA/DOCUSATE SOD 1 TAB TABLET 2 TAB PO (11:08)
[2025-01-21] MEDS: POLYETHYLENE GLYCOL 17 GM PACKET 34 GM PO (11:08)
[2025-01-21 12:00] VITALS: BP 126/78; PULSE 65; RESP 16; TEMP 36.1; O2SAT 97
--- NOTE | 2025-01-21 12:30 | PC.CC ---
Request from [employer] for insurance authorization on [employer] Shorty 3 Plus sensors. Submitted and approved through 01/21/26. Per chart review, patient was discharged previously on insulin in 2020.
--- NOTE | 2025-01-21 13:09 | PC.NURSE ---
call to [employer] for resource list for pt to find a pcp
--- NOTE | 2025-01-21 13:32 | ESDS_ITS ---
<Statement entered by Riki Thompson MD - 01/23/25 07:17> I attest that I was physically present for the evaluation, physical examination, lab and imaging review of the patient with the residents. I discussed the case with the residents and agree with the findings and plans of care as documented below. Riki Thompson MD <Statement entered by Kirk Perez MD - 01/22/25 09:51> Patient was seen and examined by me personally. I have reviewed the below documentation by the team resident and agree with its findings. Discharge plan was discussed with the attending, Dr. Riki Thompson MD. Kirk Perez MD Internal Medicine, PGY-2 Planned Discharge Date 01/21/25 DS: Providers Provider Date of admission: 01/19/25 11:55 Primary care physician: Physician No Primary/Family Admitting Provider: Ahsan Pack MD Attending Provider on Admission: Riki Thompson MD Consults: 01/19/25 11:52 Referral Registered Dietitian Routine Comment: 01/20/25 18:49 Referral Registered Dietitian Routine Comment: Attending Provider on DC: Riki Thompson MD Discharging Provider: Riki Thompson MD Anticipated date of discharge: 01/21/25 DS: Diagnosis Problem List Completed Was Problem List Reviewed/Reconciled?: Yes Hospital Course Hospital Course Hospital course: Summary Mr. Shine? is a 34-year-old male with past medical history of type 2 diabetes mellitus diagnosed in DKA, previous episodes of DKA and medication noncompliance admitted to ICU on January 19, 2025 with diabetic ketoacidosis. In ED vitals were tachycardic 135, leukocytosis, creatinine 1.9, glucose of 606. VBG pH was 6.91, bicarb of 6, PCO2 of 20. UA was positive for 4+ glucose, 4+ ketone, 2+ blood, 7 RBC. Chest x-ray did not show any significant infiltrates. EKG showed sinus tachycardia with no ST-T waves. Abdominal ultrasound showed cholelithiasis and negative for cholecystitis. Patient recieved given 4 L fluid bolus, fentanyl, 1 doses Na bicarb. In ICU patient received insulin drip, aggressive IV hydration, with intervention patient's gap closed, tolerating p.o. diet well blood glucose within normal limits on insulin, electrolytes replaced by ICU team. Hence downgraded to telemetry on 01/20/25 after stabilization. Blood glucose is stable. Patient counseled on medication compliance and use of insulin. Was seen by registered dietitian. Also advised to follow-up patient for incidental cholelithiasis findings. Throughout the hospital course patient other problems were managed and his condition improved remarkably. Further plan to discharge the patient home since he is hemodynamically stable to be discharged home to self care with the following instructions. Discharge recommendation: - Follow outpatient regarding incidental cholelithiasis - Follow-up with PCP within 1-2 week of discharge to optimized insulin regimen - Continue rest insulin regimen as prescribed bellow - Return to the ED or call EMS is symptoms return and/or worsen If you don't have a PCP, you can make an appointment at the [facility]: [address] [place] [address] Hospital Diagnoses: #DKA resolved #Diabetes mellitus, type I versus type II, A1c 12.1 #Cholelithiasis #Normocytic normochromic anemia #Electrolyte abnormality #Hypokalemia #Hypophosphatemia #GABBY resolved #High anion gap metabolic acidosis resolved #Lactic acidosis resolved #[place] respiration resolved #Sinus tachycardia resolved Patient seen and assessed under supervision of attending physician and discuss with senior resident Dr. Perez PGY-2 Loyda Crawford MD PGY-1, Internal Medicine Time Spent with Patient Time attestation: Total time spent providing and/or coordinating discharge services: Time spent: Greater than 30 minutes Exam Vital Signs Temp Pulse Resp BP Pulse Ox O2 Del Method 97.0 F 65 16 126/78 97 Room Air 01/21/25 12:01/21/25 12:01/21/25 12:01/21/25 12:01/21/25 12:01/21/25 12:00 Narrative Exam General: Awake and in no acute distress. Conversational and non-toxic appearing. HEENT: Normocephalic, atraumatic, mucous membranes moist. Heart: Regular rate and rhythm, normal S1 and S2, no murmurs. Lungs: Clear to auscultation with no wheezing or crackles. Abdomen: Soft, nondistended, mild tenderness to epigastric region(resolved), positive bowel sounds. ?No guarding or rebound tenderness. Neurologic: Alert and oriented x3, no gross neurological deficit, and patient able to move all 4 extremities. Extremities: No edema. Skin: No rash or ecchymoses. Discharge Plan Plan Patient Disposition: HOME (Self Care) Patient condition on transfer: Stable Prescriptions/Referrals Prescriptions/Med Rec: New insulin degludec [Tresiba FlexTouch U-100] 100 unit/mL (3 mL) insulin pen 15 unit subcut QDAY Qty: 15 3RF insulin lispro 100 unit/mL insulin pen 5 unit subcut TID Qty: 15 3RF (DME) pen needle, diabetic [Advocate Pen Needle] 31 gauge x 3/16 needle See Rx Instructions .Route Qty: 100 0RF Rx Instructions: As directed Discontinued insulin glargine [Lantus U-100 Insulin] 100 unit/mL solution 15 unit subcut QAM Qty: 10 0RF Referrals: No Primary/Family,Physician [Primary Care Provider] - Kirk Perez MD [Resident] - Patient/Caregiver Discharge Instructions Education Materials: Diabetic Ketoacidosis Print Language: Bulgarian Stand Alone Forms: Marii Award Info., Patient Portal Info Letter Discharge Order Discharge Orders: Discharge (Routine); Ordered 01/21/25 Ordered By: Kirk Perez Quality Discharge Quality Measures VTE prophylaxis
== END 2025-01-21 14:20 | disposition home or self-care (01) | DRG 420 ==
LOC: SERX 10:28 → SERHOLD 12:11 → S2SX 12:41 → S3NX 01-20 11:15
PROVIDERS: Admitting Provider Internal Medicine Critical Care Medicine; Emergency Provider Emergency Medicine; Visit Provider Student in an Organized Health Care Education/Training Program
DX: E11.10 Type 2 diabetes mellitus with ketoacidosis without coma (principal); E83.39 Other disorders of phosphorus metabolism; Z91.148 Patient's other noncompliance with medication regimen for other reason; E86.0 Dehydration; R00.0 Tachycardia, unspecified; D64.9 Anemia, unspecified; N17.9 Acute kidney failure, unspecified; E86.1 Hypovolemia; E87.6 Hypokalemia; K80.20 Calculus of gallbladder without cholecystitis without obstruction
CPT/HCPCS: 36415; 36600; 71045; 76705; 80053; 80061; 80069; 80307; 81001; 82010; 82310; 82803; 83036; 83605; 83690; 83735; 84100; 85025; 87040; 87081; 93005; 96361; 96374; 99284; J1644; J1815; J2405; J3010; J3475; J3480; J7120; J7121; J7999; A9270

== ENCOUNTER 2025-02-27 14:30 | Emergency (ER) | payer MEDICAID, SELFPAY ==
[2025-02-27 14:30] VITALS: BMI 28.4
[2025-02-27 15:19] VITALS: BP 141/89; PULSE 71; RESP 18; TEMP 37.6; O2SAT 98
--- NOTE | 2025-02-27 15:51 | PD.EDRME ---
Rapid Medical Screening Exam RME Arrival date/time: 02/27/25 14:30 This is a 34-year-old male that comes into the emergency room with complaints of abdominal pain nausea vomiting. patient reports history of diabetes. I have greeted and performed a focused initial assessment of this patient. Initial appropriate labs ordered at this time. A comprehensive ED assessment and evaluation of the patient and analysis of all test and completion of medical decision making process will be conducted by additional ED provider. Chief Complaint: Abdominal Pain Time Seen by Provider: 02/27/25 14:34 Vital signs: Vital Signs Temperature 99.6 F 02/27/25 15:19 Pulse Rate 71 02/27/25 15:19 Respiratory Rate 18 02/27/25 15:19 Blood Pressure 141/89 H 02/27/25 15:19 Pulse Oximetry (%) 98 02/27/25 15:19 Oxygen Delivery Method Room Air 02/27/25 15:19
[2025-02-27] MEDS: ONDANSETRON ODT 4 MG TABRAP PO (15:59)
[2025-02-27] MEDS: HYDROcodone/APAP 5/325 TABLET 1 TAB PO ×3 (16:26→23:37)
[2025-02-27 16:42] LABS: Basophils # (Auto) 0.0 Thou/mm3 (0.0-0.2); Basophils % (Auto) 0 % (0-2.5); Eosinophils # (Auto) 0.0 Thou/mm3 (0.0-0.5); Eosinophils % (Auto) 0 % (0-10); Hematocrit 45.3 % (41.0-53.0); Hemoglobin 14.6 g/dL (13.5-16.0); Immature Granulocytes Auto 0.04 Thou/mm3 (0.00-0.00); Lymphocytes # (Auto) 1.0 Thou/mm3 (1.0-4.8); Lymphocytes % (Auto) 10 % (10-50); Mean Corpuscular HGB Conc 32.2 g/dl (31.0-37.0); Mean Corpuscular Hemoglobin 28.0 pg (25.0-35.0); Mean Corpuscular Volume 87 fL (80-100); Monocytes # (Auto) 0.6 Thou/mm3 (0.0-0.8); Monocytes % (Auto) 6 % (0-12); Neutrophils # (Auto) 8.2 Thou/mm3 (1.8-7.7); Neutrophils % (Auto) 83 % (37-80); Nucleated Red Blood Cell # 0.00 Thou/mm3 (0.00-0.00); Nucleated Red Blood Cell % 0 /100 WBC (0); Platelet Count 275 Thou/mm3 (140-440); RDW Standard Deviation 40.7 fL (35.1-43.9); Red Blood Count 5.21 Miln/mm3 (4.50-5.90); White Blood Count 10.0 Thou/mm3 (3.8-10.6)
[2025-02-27 16:48] LABS: Collection Type, Urine Voided; Squamous Epithelial Cell,Urine 0 /hpf (0-5)
[2025-02-27 16:51] LABS: Alanine Aminotransferase 362 U/L (10-49); Albumin, Serum 5.0 gm/dL (3.5-5.0); Albumin/Globulin Ratio 1.9 (1.2-2.2); Alkaline Phosphatase 162 U/L (46-116); Anion Gap 12 (7-16); Aspartate Amino Transferase 56 U/L (0-34); BUN/Creatinine Ratio 11 Ratio (12-20); Bilirubin,Total 0.9 mg/dL (0.3-1.2); Blood Urea Nitrogen 9 mg/dL (9-23); Calcium 10.1 mg/dL (8.3-10.6); Calcium (Corrected) 10.1 mg/dL (8.5-10.1); Carbon Dioxide 27.8 mMol/L (20.0-31.0); Chloride 103 mMol/L (98-107); Creatinine (Component) 0.8 mg/dL (0.6-1.3); Estimated Creatinine Clearance 126.2 mL/min (>60); Globulin 2.7 gm/dL (2.3-3.5); Glucose 123 mg/dL (74-106); Lipase 37 U/L (12-53); Osmolality,Calculated 284 (275-295); Potassium 4.5 mMol/L (3.4-5.1); Sodium 143 mMol/L (136-145); Total Protein 7.7 gm/dL (5.7-8.2); eGFR > 60 See Note
[2025-02-27 17:00] LABS: Bilirubin,Urine Negative (Negative); Blood,Urine Negative (Negative); Clarity,Urine Clear (Clear/Hazy); Color,Urine Yellow (Lt Yel-Yel); Culture Indicated,Urine Not Indicated; Glucose, Urine 1+ (Negative); Ketones,Urine 4+ (Negative); Leukocyte Esterase,Urine Negative (Negative); Nitrite,Urine Negative (Negative); PH,Urine 5.5 (5.0-7.0); Protein,Urine 1+ (Neg - Trace); RBC,Urine 1 /hpf (0-3); Specific Gravity,Urine 1.037 (1.001-1.035); Urobilinogen,Urine Negative mg/dL (0.0-1.0); WBC,Urine < 1 /hpf (0-5)
[2025-02-27 17:16] LABS: Amphetamine/Methamp Scrn,U Negative (Negative); Barbiturate Screen,Urine Negative (Negative); Benzodiazepines Screen,Urine Negative (Negative); Benzoylecgonine Screen, Ur Negative (Negative); Fentanyl Screen,Urine Negative (Negative); Opiate Screen,Urine Negative (Negative); THC Screen,Urine Negative (Negative)
--- NOTE | 2025-02-27 18:06 | PD.EDADULT ---
ED General RME/HPI General Chief complaint: Abdominal Pain Stated complaint: EPIGASTRIC PAIN SINCE 399 WITH N/V Time Seen by Provider: 02/27/25 14:34 Arrival date/time: 02/27/25 14:30 RME / HPI RME / HPI narrative: 02/27/25 14:30 Ramez is a 34 y/o male with PMHx of insulin-dependent type 2 diabetes mellitus, previous DKA who comes in for an evaluation of abdominal pain with associated vomiting described as yellow, pain rated 8 out of 10, and described as constant. Patient reports that he is never had abdominal pain like this, and is described in location as the epigastric region. He is unsure if it is worse with foods. He denies any recent travel or anyone around him feeling like this. He reports a history of gallstones as well. Related Data Previous Rx's ?Medication ?Instructions ?Recorded blood-glucose sensor (FreeStyle #1 ea 01/21/25 Shorty 3 Plus Sensor device) insulin degludec 100 unit/mL (3 15 unit (0.15 mL) subcut QDAY #15 01/21/25 mL) subcutaneous pen (Tresiba mL FlexTouch U-100 insulin) insulin lispro 100 unit/mL 5 unit (0.05 mL) subcut TID #15 mL 01/21/25 subcutaneous pen pen needle, diabetic 31 gauge x #100 ea 01/21/25 3/16 (Advocate Pen Needle) Allergies Allergy/AdvReac Type Severity Reaction Status Date / Time No Known Allergies Allergy Verified 02/27/25 14:33 Review of Systems Review of Systems Narrative Review of Systems: Constitutional: No fever, chills, fatigue, weakness, weight loss HEENT: No eye pain, vision loss, ear pain, hearing loss, dysphagia, Cardiovascular: No chest pain, palpitations, edema, pain with walking Respiratory: No cough, shortness of breath, wheezing GI: + vomiting, + abdominal pain, no constipation, blood in stool, loss of appetite, heartburn Extremities: No presence of pitting edema MSK: No back pain, joint pain, joint swelling Neuro: No dizziness, numbness, weakness, headaches, seizures, tremors Psych: No anxiety, depression ED Exam Narrative Physical exam: General: AAOx3, NAD, [place]-speaking male HEENT: Moist mucous membranes, conjunctiva clear, EOMI, PERRLA, Cardiovascular: S1, S2, radial pulses +2 bilat, RRR Pulmonary: CTAB bilat no cough, no wheezing GI: Abdomen soft, hypoactive bowel sounds, tenderness to palpation in epigastric region, no Nails's sign appreciated Extremities: No presence of trace or pitting edema in lower extremities bilaterally, dorsalis pedis pulses +2 bilaterally Neuro: AAOx3, no focal motor or sensory deficits in the UE or LE bilat Psych: Good judgement, thought and behavior Course Quality Measures none Orders Category Date Time Status EKG (ED ONLY) *Do not use* NOW Care 02/27/25 18:49 Completed Insert IV NOW Care 02/27/25 18:[address] abdomen pelvis wo con Stat Exams 02/27/25 18:49 Completed EKG (ED Only) Stat Exams 02/27/25 18:49 Draft US abdomen Stat Exams 02/27/25 18:54 Completed Alcohol, Blood Medical Stat Lab 02/27/25 19:20 Completed CBC Stat Lab 02/27/25 16:08 Completed Comprehensive Metabolic Panel Stat Lab 02/27/25 16:08 Completed Drug Screen,Urine Stat Lab 02/27/25 16:35 Completed Lipase Stat Lab 02/27/25 16:08 Completed Phosphorous Stat Lab 02/27/25 19:20 Completed Urinalysis, C/S if Indicated Stat Lab 02/27/25 16:35 Completed Venous Blood Gas Stat Lab 02/27/25 19:20 Completed HYDROcodone*/APAP 5/325 [[place] 5/325] Med 02/27/25 15:58 Discontinued 1 tab PO X1 ONE HYDROcodone*/APAP 5/325 [[place] 5/325] Med 02/27/25 20:05 Discontinued 1 tab PO X1 ONE Morphine* Inj Med 02/27/25 18:47 Discontinued 4 mg IVP X1 ONE Ondansetron Odt [Zofran Odt] Med 02/27/25 15:53 Discontinued 4 mg PO X1 ONE Ondansetron Odt [Zofran Odt] Med 02/27/25 15:58 Discontinued 4 mg PO X1 ONE Pantoprazole Inj [Protonix Inj] Med 02/27/25 18:54 Discontinued 40 mg IVP X1 ONE Vital Signs Vital signs: Vital Signs Temperature 99.6 F 02/27/25 15:19 Pulse Rate 71 02/27/25 15:19 Respiratory Rate 18 02/27/25 15:19 Blood Pressure 141/89 H 02/27/25 15:19 Pulse Oximetry (%) 98 02/27/25 15:19 Oxygen Delivery Method Room Air 02/27/25 15:19 Discharge Plan Plan Patient Disposition: HOME (Self Care) Prescriptions/Referrals Prescriptions/Med Rec: No Action insulin degludec [Tresiba FlexTouch U-100] 100 unit/mL (3 mL) insulin pen 15 unit subcut QDAY Qty: 15 3RF insulin lispro 100 unit/mL insulin pen 5 unit subcut TID Qty: 15 3RF (DME) pen needle, diabetic [Advocate Pen Needle] 31 gauge x 3/16 needle See Rx Instructions .Route Qty: 100 0RF Rx Instructions: As directed (DME) FreeStyle Shorty 3 Plus Sensor Device See Rx Instructions .Route Qty: 1 0RF Rx Instructions: As directed Referrals: No Primary/Family,Physician [Primary Care Provider] - In 1 week Problem List Clinical Impression: Acute cholecystitis Patient/Caregiver Discharge Instructions Education Materials: ED Cholecystitis, Confirmed Additional Instructions: Discharge Instructions from Dr. Sanchez: 1. After evaluation, your symptoms are due to gallstone(s).? You need gallbladder to help digest fatty foods. 2. So to prevent future attacks, avoid all fatty and oily and greasy and buttery and dairy foods.? This usually means take out and fast food restaurants. 3. Zofran for nausea/vomiting.? Tylenol with codeine for severe pain.? Clear liquid diet for 24 hours then advance diet slowly as tolerated. 4. See a private doctor for recheck and further care. Ask to review all test results and official radiology reports, to make sure you receive all necessary follow-ups and monitoring. Ask for help seeing a general surgeon to discuss elective surgery. 5. Seek immediate medical care with intolerable pain, fever, or with any concerns. Print Language: [place] Korean Stand Alone Forms: Marii Award Info., Patient Portal Info Letter MDM Narrative MDM hospital course (for use when minimal MDM required): 193: Due to abdominal exam, patient could also have ulcer, however patient does have history of cholelithiasis. Will order CT abdomen pelvis to rule out ulcer or pancreatic pathology and also US abdomen for cholecystitis. Will initiate IV pain medicine with morphine, will also order blood alcohol level. Patient's liver enzymes are elevated and ALP is elevated concerning for gallbladder pathology. 2010: Does not want IV, will give [place], CT Abd/Pelvis shows cholelithiasis, but no cholecystitis. Will follow up with US Abdomen. Blood EtOH negative 2332: Ultrasound of abdomen shows acute cholecystitis CBD 0.3 cm, gallbladder wall 6.6 cm with edema. Consulted general surgery, Dr. Payton, who recommend to have patient come to emergency room Saturday for further evaluation with MRCP. Patient will get further evaluation with MRCP and possible cholecystectomy thereafter. There is no MRI services tomorrow and patient does not meet septic criteria for inpatient admission at this time. Also informed patient to have strict ER precautions if symptoms worsen. Given additional [place]. Patient is medically cleared for discharge at this time with strict ER return precautions if patient symptoms worsen or patient clinically deteriorates. EKG Interpretation EKG #1: EKG Interpretation: Sinus rhythm, rate of 68, no ST changes, QT 369 Medication Administration(s) Medication Administration History Discontinued Medications Hydrocodone Bitart/Acetaminophen (Hydrocodone/Apap 5/325 Tablet) 1 tab PO X1 ONE Stop: 02/27/25 15:59 Last Admin: 02/27/25 16:26 Dose: 1 tab Documented By: Hydrocodone Bitart/Acetaminophen (Hydrocodone/Apap 5/325 Tablet) 1 tab PO X1 ONE Stop: 02/27/25 20:06 Last Admin: 02/27/25 20:11 Dose: 1 tab Documented By: CVL Morphine Sulfate (Morphine Sulf Inj 4 Mg/Ml Vial) 4 mg IVP X1 ONE Stop: 02/27/25 18:48 Last Admin: 02/27/25 19:46 Dose: Not Given Documented By: KATHRIN Non-Admin Reason: Patient Refused Ondansetron HCl (Ondansetron Odt 4 Mg Tabrap) 4 mg PO X1 ONE; Protocol Stop: 02/27/25 15:54 Last Admin: 02/27/25 15:59 Dose: 4 mg Documented By: Ondansetron HCl (Ondansetron Odt 4 Mg Tabrap) 4 mg PO X1 ONE; Protocol Stop: 02/27/25 15:59 Last Admin: 02/27/25 16:16 Dose: Not Given Documented By: Non-Admin Reason: Patient Refused Pantoprazole Sodium (Pantoprazole Inj 40 Mg Vial) 40 mg IVP X1 ONE Stop: 02/27/25 18:55 Last Admin: 02/27/25 19:46 Dose: Not Given Documented By: KATHRIN Non-Admin Reason: Patient Refused Consultations/Discussions re: Management Consult #1: Date/time: 02/27/25 11:34 pm Physician, specialty, service, details: Consulted general surgery, Dr. Payton, who recommend to have patient come to emergency room Saturday for further evaluation with MRCP. Patient will get further evaluation with MRCP and possible cholecystectomy thereafter. This is because we do not have MRI services tomorrow.
--- NOTE | 2025-02-27 18:49 | EKG_ITS ---
[facility] Test Date: 2025-02-27 Pat Name: LINETTE ATKINSON Department: Room: - Gender: Male Bods Developer: : 1990 Requested By: [place] Order Number: [id number] Reading MD: [place] Measurements Intervals [place] Rate: 68 P: 35 VT: 180 QRS: 42 QRSD: 89 T: 9 QT: 369 QTc: 395 Interpretive Statements SINUS RHYTHM Compared to ECG 01/19/2025 09:09:53 Sinus tachycardia no longer present /store/S0/[id number]/[id number].pdf
--- NOTE | 2025-02-27 18:49 | XR_ITS ---
Examination: CT abdomen and pelvis without contrast. Coronal 3-D reconstructions. Sagittal 2-D reconstructions. Date and time of exam:February 27, 2025, 1857 hrs., Comparison October 04, 2020 Indications: Abdominal pain nausea vomiting beginning today, history gallstones CTDI: vol (mGy): 7.38 DLP: (mGycm): 447 Technique: Axial images of the abdomen have been obtained, 3 mm slice thickness Intravenous contrast material has not been administered. Low dose protocols were performed. One or more of the following dose reduction techniques were used; automated exposure control, adjustment of the mA and/or KV according to patient size, use of iterative reconstruction technique. Findings: No visualized liver or splenic lesions Gallstones including large impacted stone in the gallbladder neck Suspicious for mild gallbladder wall thickening No pancreatic mass No renal or ureteral calculi, no hydronephrosis Contrast in the stomach and small bowel No bowel obstruction Normal appendix No diverticulitis Contracted urinary bladder No prostatomegaly Significant osteopenia Hemangiomatous change L2 Impression: Cholelithiasis, recommend gallbladder sonography follow-up to exclude cholecystitis Normal appendix No bowel obstruction diverticulitis or free air
--- NOTE | 2025-02-27 18:54 | XR_ITS ---
Examination: Abdomen sonogram, complete Date and time of exam: February 27 20,025, 2117 hrs. Indications: Onset epigastric pain today. Technique: Multiple real-time grayscale transabdominal sonographic images of the abdomen have been obtained. Findings: Multiple gallstones Gallbladder wall measure up to 6.6 mm with edema Common bile duct 0.3 cm Pancreatic head 2.6 cm poorly visualized Aorta mid and distal visualized not enlarged Liver 13.3 cm no liver lesions Normal hepatopedal portal venous flow Patent IVC Right kidney 11.4 cm cortex 1.8 cm Left kidney 11.2 cm cortex 2.1 cm Spleen 10.9 cm Impression: Acute calculus cholecystitis Consider MRCP follow-up as clinically warranted
[2025-02-27 19:40] LABS: Base Excess, Venous 2 (-3-3); O2 Saturation, Venous 47 % (96-97); PCO2, Venous 45 mmHg (36-56); PO2, Venous 29 mmHg (15-58); pH, Venous 7.39 (7.33-7.66)
[2025-02-27 19:49] LABS: Alcohol, Blood Medical < 3.0 mg/dL (0-10.0); Phosphorous 3.7 mg/dL (2.4-5.1)
[2025-02-27 20:35] VITALS: BP 136/81; PULSE 67; RESP 17; TEMP 36.8; O2SAT 98
[2025-02-27 22:55] VITALS: BP 111/76; PULSE 62; RESP 18; TEMP 36.8; O2SAT 98
== END 2025-02-28 00:38 | disposition home or self-care (01) ==
PROVIDERS: Nurse Practitioner Family; Emergency Provider Emergency Medicine
DX: K81.0 Acute cholecystitis (principal); E11.9 Type 2 diabetes mellitus without complications; Z89.9 Acquired absence of limb, unspecified
CPT/HCPCS: 36415; 74176; 76700; 80053; 80307; 80320; 81001; 82803; 83690; 84100; 85025; 93005; 99284; Q0162; A9270; G0480

== ENCOUNTER 2025-03-01 08:45 | Observation (INO) | payer MEDICAID, SELFPAY ==
[2025-03-01] VITALS (12 sets, daily range): BP systolic 99–143; BP diastolic 63–90; PULSE 78–115; RESP 18–20; TEMP 36.3–38; O2SAT 95–98; BMI 28.5; BMI 27.2
--- NOTE | 2025-03-01 | XR_ITS ---
MRI abdomen, without contrast. MRCP Date and time of exam: March 01 thousand 25, 1528 hours INDICATIONS: Right upper abdominal pain and tenderness beginning 3 days ago, gallstones, gallbladder wall appears thickened with edema on abdomen sonogram February 27, 2025 Technique: Multiple axial and coronal images of the abdomen have been obtained with the Siemens 1.5T MRI scanner. Images obtained included T1 weighted transverse images, T2-weighted transverse images, T2-weighted transverse images fat-suppressed, T2 weighted haste fat suppressed transverse images, T1 weighted images, in and out of phase images, T2-weighted coronal images, breath hold, T2 weighted haze coronal images as well as T2 weighted coronal thick slab images, MRCP. Findings: No intrahepatic biliary tract dilatation Cholelithiasis, gallbladder wall is thickened and edematous No common hepatic or common bile duct stones No pancreatic edema Spleen is not enlarged No ascites Kidneys are intact IMPRESSION: Acute calculus cholecystitis
--- NOTE | 2025-03-01 09:32 | PD.EDRME ---
Rapid Medical Screening Exam E Arrival date/time: 03/01/25 08:45 34-year-old male with a history of type 1 diabetes presents to the emergency room with a chief complaint of right upper quadrant abdominal pain and tenderness. Patient was seen here on Saturday and was instructed to return to the emergency room for surgery. I have greeted and performed a focused initial assessment of this patient. A comprehensive ED assessment and evaluation of the patient, analysis of all test results, and completion of the medical decision making process will be conducted by additional ED providers. Chief Complaint: General Adult/Misc Complain Time Seen by Provider: 03/01/25 09:01 Vital signs: Vital Signs Temperature 98.9 F 03/01/25 09:21 Pulse Rate 115 H 03/01/25 09:21 Respiratory Rate 18 03/01/25 09:21 Blood Pressure 123/77 03/01/25 09:21 Pulse Oximetry (%) 97 03/01/25 09:21 Oxygen Delivery Method Room Air 03/01/25 09:21 Vital signs reviewed by provider: Yes
--- NOTE | 2025-03-01 09:36 | PD.EDABDPN ---
ED Abdominal Pain RME/HPI General Chief Complaint: General Adult/Misc Complain Stated complaint: CAME FOR SURGERY Time seen by provider: 03/01/25 09:01 Arrival date/time: 03/01/25 08:45 RME / HPI RME / HPI narrative: 03/01/25 08:45 34-year-old male with a history of type 1 diabetes presents to the emergency room with a chief complaint of right upper quadrant abdominal pain and tenderness. Patient was seen here on Saturday and was instructed to return to the emergency room for mrcp. I have greeted and performed a focused initial assessment of this patient. A comprehensive ED assessment and evaluation of the patient, analysis of all test results, and completion of the medical decision making process will be conducted by additional ED providers. DR SILVA MAIN ED EVALUATION: 34 yo male patient seen here 2 days ago c/o RUQ abdominal pain. Evaluated by surgeon Dr. Payton and advised to return today for MRCP if symptoms persist. Related Data Previous Rx's ?Medication ?Instructions ?Recorded blood-glucose sensor (FreeStyle #1 ea 01/21/25 Shorty 3 Plus Sensor device) insulin degludec 100 unit/mL (3 15 unit (0.15 mL) subcut QDAY #15 01/21/25 mL) subcutaneous pen (Tresiba mL FlexTouch U-100 insulin) insulin lispro 100 unit/mL 5 unit (0.05 mL) subcut TID #15 mL 01/21/25 subcutaneous pen pen needle, diabetic 31 gauge x #100 ea 01/21/25 3/16 (Advocate Pen Needle) hydrocodone 5 mg-acetaminophen 325 1 tab PO Q6H PRN breakthrough pain 02/27/25 mg tablet 3 days #10 tabs Allergies Allergy/AdvReac Type Severity Reaction Status Date / Time No Known Allergies Allergy Verified 03/01/25 08:53 Course Orders Category Date Time Status MRI Screening NOW Care 03/01/25 09:31 Active MR MRCP Stat Exams 03/01/25 Ordered Blood Culture (Lab) Stat Lab 03/01/25 10:38 Ordered CBC Stat Lab 03/01/25 09:38 Completed CMP [Comprehensive Metabolic Panel] Stat Lab 03/01/25 09:38 Results Lactate (Lactic Acid) Stat Lab 03/01/25 10:24 Completed Lipase Stat Lab 03/01/25 09:38 Results Procalcitonin Stat Lab 03/01/25 09:38 Results UA [Urinalysis] Stat Lab 03/01/25 10:12 Completed Urine Culture Stat Lab 03/01/25 10:12 Received HYDROcodone*/APAP 5/325 [[place] 5/325] Med 03/01/25 09:33 Discontinued 1 tab PO X1 ONE Morphine* Inj Med 03/01/25 10:06 Discontinued 4 mg IVP X1 ONE Ondansetron Inj [Zofran Inj] Med 03/01/25 10:06 Discontinued 4 mg IVP X1 ONE Piper/Tazo 3.375 gm Premix [Zosyn] Med 03/01/25 10:39 Active 3.375 gm in 50 ml IV X1 Sodium Chloride 0.9% 1000 ml [Ns] 1,000 ml Med 03/01/25 10:07 Active IV 999 mls/hr Vital Signs Vital signs: Vital Signs Temperature 98.9 F 03/01/25 09:21 Pulse Rate 115 H 03/01/25 09:21 Respiratory Rate 18 03/01/25 09:21 Blood Pressure 123/77 03/01/25 09:21 Pulse Oximetry (%) 97 03/01/25 09:21 Oxygen Delivery Method Room Air 03/01/25 09:21 Abdominal Pain MDM Medications / Prescriptions Medication administrations:: Medication Administration History Sodium Chloride (Ns) 1,000 mls @ 999 mls/hr IV .Q1H1M ONE Stop: 03/01/25 11:07 Last Admin: 03/01/25 10:27 Dose: 999 mls/hr Documented By: BY Piperacillin/Tazobactam/Dextrose (Zosyn) 3.375 gm in 50 mls @ 100 mls/hr IV X1 ONE; Protocol Stop: 03/01/25 11:08 Discontinued Medications Hydrocodone Bitart/Acetaminophen (Hydrocodone/Apap 5/325 Tablet) 1 tab PO X1 ONE Stop: 03/01/25 09:34 Last Admin: 03/01/25 10:31 Dose: Not Given Documented By: BY Non-Admin Reason: Cancelled by Provider Morphine Sulfate (Morphine Sulf Inj 4 Mg/Ml Vial) 4 mg IVP X1 ONE Stop: 03/01/25 10:07 Last Admin: 03/01/25 10:29 Dose: 4 mg Documented By: BY Ondansetron HCl (Ondansetron Inj 2 Mg/Ml Inj 2 Ml) 4 mg IVP X1 ONE Stop: 03/01/25 10:07 Last Admin: 03/01/25 10:28 Dose: 4 mg Documented By: BY Discharge Plan Prescriptions/Referrals Prescriptions/Med Rec: No Action insulin degludec [Tresiba FlexTouch U-100] 100 unit/mL (3 mL) insulin pen 15 unit subcut QDAY Qty: 15 3RF insulin lispro 100 unit/mL insulin pen 5 unit subcut TID Qty: 15 3RF (DME) pen needle, diabetic [Advocate Pen Needle] 31 gauge x 3/16 needle See Rx Instructions .Route Qty: 100 0RF Rx Instructions: As directed (DME) FreeStyle Shorty 3 Plus Sensor Device See Rx Instructions .Route Qty: 1 0RF Rx Instructions: As directed hydrocodone-acetaminophen 5-325 mg tablet 1 tab PO Q6H MDD 4 PRN (Reason: breakthrough pain) 3 Days Qty: 10 0RF Rx Instructions: Take 1 tablet by mouth up to every 6 hours as needed for severe pain Patient/Caregiver Discharge Instructions Print Language: Belizean
--- NOTE | 2025-03-01 10:07 | PD.EDABDPN ---
ED Abdominal Pain RME/HPI General Chief Complaint: General Adult/Misc Complain Stated complaint: CAME FOR SURGERY Time seen by provider: 03/01/25 09:01 Arrival date/time: 03/01/25 08:45 RME / HPI RME / HPI narrative: 03/01/25 08:45 34-year-old male with a history of type 1 diabetes presents to the emergency room with a chief complaint of right upper quadrant abdominal pain and tenderness. Patient was seen here on Saturday and was instructed to return to the emergency room for mrcp. I have greeted and performed a focused initial assessment of this patient. A comprehensive ED assessment and evaluation of the patient, analysis of all test results, and completion of the medical decision making process will be conducted by additional ED providers. DR NAIR MAIN ED EVALUATION: 34 yo male patient with history of diabetes presents to the ED for further evaluation of abdominal pain beginning 2 days ago. Pain described as pressure in sensation localized to the right upper abdomen that radiates to his back. Rating as moderate. Reports he was evaluated here two days ago for similar pain and surgeon Dr. Payton was consulted for US findings of acute cholcystitis. States he was advised by the surgeon to return today for MRCP. Denies fevers, chills, nausea, vomiting, diarrhea, constipation, or urinary symptoms. Related Data Previous Rx's ?Medication ?Instructions ?Recorded blood-glucose sensor (FreeStyle #1 ea 01/21/25 Shorty 3 Plus Sensor device) insulin degludec 100 unit/mL (3 15 unit (0.15 mL) subcut QDAY #15 01/21/25 mL) subcutaneous pen (Tresiba mL FlexTouch U-100 insulin) insulin lispro 100 unit/mL 5 unit (0.05 mL) subcut TID #15 mL 01/21/25 subcutaneous pen pen needle, diabetic 31 gauge x #100 ea 01/21/25 3/16 (Advocate Pen Needle) hydrocodone 5 mg-acetaminophen 325 1 tab PO Q6H PRN breakthrough pain 02/27/25 mg tablet 3 days #10 tabs Allergies Allergy/AdvReac Type Severity Reaction Status Date / Time No Known Allergies Allergy Verified 03/01/25 08:53 Review of Systems Review of Systems Systems Reviewed: All systems reviewed, normal except as documented Past Medical History Past Medical History ENDOCRINE: Positive Diabetes Mellitus Type 2 PSYCHO/SOCIAL: Positive Depression and Anxiety OTHER HISTORY: Positive Chicken Pox and Measles Family History FAMILY HISTORY: Positive Family Cardiac Disorders and Family Gastrointestinal Problems Surgical History SURGICAL: Positive Carotid Endarterectomy Social History SMOKING STATUS: Never smoker ED Exam Narrative Physical exam: GENERAL APPEARANCE: alert and oriented x 4, well-developed, well-nourished, appears uncomfortable. HEENT: Normocephalic, atraumatic; pupils equal, round, reactive to light; EOMI; mucous membranes pink, moist; oropharynx clear NECK: Supple LUNGS: CTABL; no wheezes, no rales, no rhonchi HEART: Regular rate, regular rhythm; normal S1, S2; no murmurs ABDOMEN: mild to moderate distention; normal BS; soft, right upper abdominal tenderness with mild voluntary guarding, no rebound; no masses, no organomegaly, no hernia BACK: no CVA tenderness EXTREMITIES: atraumatic; no edema NEUROLOGIC: awake; alert and oriented x4; cranial nerves II-XII grossly intact; no focal sensory or motor deficits PSYCHIATRIC: appropriate mood and affect SKIN: warm, dry, normal color; no rashes Course Course Course Narrative: 1035a: Labs were reviewed and WBC is now mildly elevated at 14.1 compared to 10.0 on 02/27/2025. Will order blood cultures and start patient on Zosyn. 1118a: I spoke with surgeon Dr. Payton. discussed todays labs. At this time pending MRCP. 1605p: I spoke with surgeon Dr. Payton. Discussed MRCP results, states he will take patient to surgery. Quality Measures none Orders Category Date Time Status MRI Screening NOW Care 03/01/25 09:31 Active MR MRCP Stat Exams 03/01/25 Completed Blood Culture (Lab) Stat Lab 03/01/25 10:58 Received CBC Stat Lab 03/01/25 09:38 Completed CMP [Comprehensive Metabolic Panel] Stat Lab 03/01/25 09:38 Completed Lactate (Lactic Acid) Stat Lab 03/01/25 10:24 Completed Lipase Stat Lab 03/01/25 09:38 Completed Procalcitonin Stat Lab 03/01/25 09:38 Completed UA [Urinalysis] Stat Lab 03/01/25 10:12 Completed Urine Culture Stat Lab 03/01/25 10:12 Received HYDROcodone*/APAP 5/325 [[place] 5/325] Med 03/01/25 09:33 Discontinued 1 tab PO X1 ONE Morphine* Inj Med 03/01/25 10:06 Discontinued 4 mg IVP X1 ONE Ondansetron Inj [Zofran Inj] Med 03/01/25 10:06 Discontinued 4 mg IVP X1 ONE Piper/Tazo 3.375 gm Premix [Zosyn] Med 03/01/25 10:39 Discontinued 3.375 gm in 50 ml IV X1 Sodium Chloride 0.9% 1000 ml [Ns] 1,000 ml Med 03/01/25 10:07 Discontinued IV 999 mls/hr Sodium Chloride 0.9% 1000 ml [Ns] 1,000 ml Med 03/01/25 14:43 Discontinued IV 999 mls/hr Vital Signs Vital signs: Vital Signs Temperature 98.9 F 03/01/25 09:21 Pulse Rate 115 H 03/01/25 09:21 Respiratory Rate 18 03/01/25 09:21 Blood Pressure 123/77 03/01/25 09:21 Pulse Oximetry (%) 97 03/01/25 09:21 Oxygen Delivery Method Room Air 03/01/25 09:21 Pulse ox is 97% on room air which is adequate. Abdominal Pain MDM MDM Narrative MDM Narrative:: Jessica Michel am scribing for and in the presence of Dr. Nair. Patient data External records reviewed:: [facility] previous records (I reviewed ED visit on 02/27/2025. ) Clinical information provided by:: patient Social determinants that could affect healthcare access:: none Patient has the following chronic illnesses:: Diabetes, known hx of gallstones How is presenting disease/condition affected by chronic disease/condition?: exacerbated by Evaluation data The following diagnostics were reviewed and interpreted by me:: lab results Lab and/or radiology exams considered but not ordered:: None Interpretation Summary: Ordering Physician: Mathew Almaraz Date of Service: 03/01/25 Procedure(s): MR MRCP Accession Number(s): [id number] cc: Mathew Almaraz; Calixto Singh MD; Gaurang Kemp MD~ MRI abdomen, without contrast. MRCP Date and time of exam: March 01 thousand 25, 1528 hours INDICATIONS: Right upper abdominal pain and tenderness beginning 3 days ago, gallstones, gallbladder wall appears thickened with edema on abdomen sonogram February 27, 2025 Technique: Multiple axial and coronal images of the abdomen have been obtained with the Siemens 1.5T MRI scanner. Images obtained included T1 weighted transverse images, T2-weighted transverse images, T2-weighted transverse images fat-suppressed, T2 weighted haste fat suppressed transverse images, T1 weighted images, in and out of phase images, T2-weighted coronal images, breath hold, T2 weighted haze coronal images as well as T2 weighted coronal thick slab images, MRCP. Findings: No intrahepatic biliary tract dilatation Cholelithiasis, gallbladder wall is thickened and edematous No common hepatic or common bile duct stones No pancreatic edema Spleen is not enlarged No ascites Kidneys are intact IMPRESSION: Acute calculus cholecystitis Dictated By: Gaurang Kemp MD Signed By: <Electronically signed by Gaurang Kemp MD in OV> 03/01/25 1603 Medications / Prescriptions Medications or Prescriptions considered but not ordered:: None Medication administrations:: Medication Administration History Discontinued Medications Hydrocodone Bitart/Acetaminophen (Hydrocodone/Apap 5/325 Tablet) 1 tab PO X1 ONE Stop: 03/01/25 09:34 Last Admin: 03/01/25 10:31 Dose: Not Given Documented By: BY Non-Admin Reason: Cancelled by Provider Sodium Chloride (Ns) 1,000 mls @ 999 mls/hr IV .Q1H1M ONE Stop: 03/01/25 11:07 Last Infusion: 03/01/25 11:28 Dose: Infused Documented By: Admin: 03/01/25 10:27 Dose: 999 mls/hr Documented By: BY Piperacillin/Tazobactam/Dextrose (Zosyn) 3.375 gm in 50 mls @ 100 mls/hr IV X1 ONE; Protocol Stop: 03/01/25 11:08 Last Infusion: 03/01/25 13:50 Dose: Infused Documented By: Admin: 03/01/25 10:58 Dose: 100 mls/hr Documented By: TM Sodium Chloride (Ns) 1,000 mls @ 999 mls/hr IV .Q1H1M ONE Stop: 03/01/25 15:43 Last Admin: 03/01/25 16:02 Dose: 999 mls/hr Documented By: BY Morphine Sulfate (Morphine Sulf Inj 4 Mg/Ml Vial) 4 mg IVP X1 ONE Stop: 03/01/25 10:07 Last Admin: 03/01/25 10:29 Dose: 4 mg Documented By: BY Ondansetron HCl (Ondansetron Inj 2 Mg/Ml Inj 2 Ml) 4 mg IVP X1 ONE Stop: 03/01/25 10:07 Last Admin: 03/01/25 10:28 Dose: 4 mg Documented By: BY See above Consultations Consultation(s) initiated? (list below): Yes Consultation #1 (Physician, Specialty, Details): See course Diagnosis Differential diagnosis abdominal pain: abdominal pain, calculus of kidney and other (cholelithiasis, cholecystitis) Most likely diagnosis given after review of the tests above:: Acute calculous cholecystitis Admission Indicated Admission indicated?: indicated Admission Request Was there a request for admission?: Yes Admission Attestation Admission request attestation: Discussed case with [] from Hospitalist service regarding admission. Discussed patients ED course, exam findings, labs, and radiology results. The Hospitalist [agrees,declines] to accept the patient for admission. Disposition Plan Disposition Plan: Admit Discharge Plan Plan Patient Disposition: Other Care w/in Hosp ([facility]) Discharge Disposition comment: surgeon Dr. Payton admitting Prescriptions/Referrals Prescriptions/Med Rec: No Action insulin degludec [Tresiba FlexTouch U-100] 100 unit/mL (3 mL) insulin pen 15 unit subcut QDAY Qty: 15 3RF insulin lispro 100 unit/mL insulin pen 5 unit subcut TID Qty: 15 3RF (DME) pen needle, diabetic [Advocate Pen Needle] 31 gauge x 3/16 needle See Rx Instructions .Route Qty: 100 0RF Rx Instructions: As directed (DME) FreeStyle Shorty 3 Plus Sensor Device See Rx Instructions .Route Qty: 1 0RF Rx Instructions: As directed hydrocodone-acetaminophen 5-325 mg tablet 1 tab PO Q6H MDD 4 PRN (Reason: breakthrough pain) 3 Days Qty: 10 0RF Rx Instructions: Take 1 tablet by mouth up to every 6 hours as needed for severe pain Referrals: Calixto Singh MD [Primary Care Provider, Family Practice] - In 1 week Problem List Clinical Impression: Acute calculous cholecystitis Patient/Caregiver Discharge Instructions Print Language: Faroese Stand Alone Forms: Marii Award Info., Patient Portal Info Letter
[2025-03-01 10:08] LABS: Basophils # (Auto) 0.0 Thou/mm3 (0.0-0.2); Basophils % (Auto) 0 % (0-2.5); Eosinophils # (Auto) 0.0 Thou/mm3 (0.0-0.5); Eosinophils % (Auto) 0 % (0-10); Hematocrit 47.4 % (41.0-53.0); Hemoglobin 15.7 g/dL (13.5-16.0); Immature Granulocytes Auto 0.05 Thou/mm3 (0.00-0.00); Lymphocytes # (Auto) 1.4 Thou/mm3 (1.0-4.8); Lymphocytes % (Auto) 10 % (10-50); Mean Corpuscular HGB Conc 33.1 g/dl (31.0-37.0); Mean Corpuscular Hemoglobin 29.0 pg (25.0-35.0); Mean Corpuscular Volume 88 fL (80-100); Monocytes # (Auto) 1.3 Thou/mm3 (0.0-0.8); Monocytes % (Auto) 9 % (0-12); Neutrophils # (Auto) 11.3 Thou/mm3 (1.8-7.7); Neutrophils % (Auto) 81 % (37-80); Nucleated Red Blood Cell # 0.00 Thou/mm3 (0.00-0.00); Nucleated Red Blood Cell % 0 /100 WBC (0); Platelet Count 242 Thou/mm3 (140-440); RDW Standard Deviation 41.5 fL (35.1-43.9); Red Blood Count 5.42 Miln/mm3 (4.50-5.90); White Blood Count 14.1 Thou/mm3 (3.8-10.6)
[2025-03-01 10:13] LABS: Alanine Aminotransferase 191 U/L (10-49); Albumin, Serum 5.2 gm/dL (3.5-5.0); Albumin/Globulin Ratio 1.8 (1.2-2.2); Alkaline Phosphatase 136 U/L (46-116); Anion Gap 12 (7-16); Aspartate Amino Transferase 23 U/L (0-34); BUN/Creatinine Ratio 10 Ratio (12-20); Bilirubin,Total 1.7 mg/dL (0.3-1.2); Blood Urea Nitrogen 10 mg/dL (9-23); Calcium 10.3 mg/dL (8.3-10.6); Calcium (Corrected) 10.3 mg/dL (8.5-10.1); Carbon Dioxide 27.7 mMol/L (20.0-31.0); Chloride 100 mMol/L (98-107); Creatinine (Component) 1.0 mg/dL (0.6-1.3); Estimated Creatinine Clearance 98.9 mL/min (>60); Globulin 2.9 gm/dL (2.3-3.5); Glucose 156 mg/dL (74-106); Lipase 45 U/L (12-53); Osmolality,Calculated 281 (275-295); Potassium 4.5 mMol/L (3.4-5.1); Sodium 140 mMol/L (136-145); Total Protein 8.1 gm/dL (5.7-8.2); eGFR > 60 See Note
[2025-03-01 10:16] LABS: Collection Type, Urine Clean Catch
[2025-03-01 10:26] LABS: Lactate (Lactic Acid) 1.0 mMol/L (0.4-2.0)
[2025-03-01] MEDS: SODIUM CHLORIDE 0.9% 1000 ML 1,000 ML 999 ML IV ×2 (10:27→16:02)
[2025-03-01] MEDS: ONDANSETRON INJ 2 MG/ML INJ 2 ML 4 MG IVP (10:28)
[2025-03-01] MEDS: MORPHINE SULF INJ 4 MG/ML VIAL IVP (10:29)
[2025-03-01 10:43] LABS: Bilirubin,Urine 1+ (Negative); Blood,Urine Negative (Negative); Clarity,Urine Clear (Clear/Hazy); Color,Urine Orange (Lt Yel-Yel); Glucose, Urine Trace (Negative); Ketones,Urine 3+ (Negative); Leukocyte Esterase,Urine Negative (Negative); Nitrite,Urine Negative (Negative); PH,Urine 6.0 (5.0-7.0); Protein,Urine 2+ (Neg - Trace); RBC,Urine 2 /hpf (0-3); Specific Gravity,Urine 1.047 (1.001-1.035); Squamous Epithelial Cell,Urine < 1 /hpf (0-5); Urobilinogen,Urine 6.0 mg/dL (0.0-1.0); WBC,Urine 5 /hpf (0-5)
[2025-03-01] MEDS: PIPER/TAZO 3.375 GM PREMIX 3.375 GM/50 ML BAG IV ×2 (10:58→21:51)
[2025-03-01 11:08] LABS: Procalcitonin 0.60 ng/ml (0.0-0.49)
--- NOTE | 2025-03-01 14:37 | PC.NURSE ---
MRI called for status of patients MRI, patient wont be going until this afternoon
--- NOTE | 2025-03-01 17:06 | PC.NURSE ---
report given to surgery
--- NOTE | 2025-03-01 17:28 | PC.NURSE ---
patient picked up for surgery at this time patient is alert and verbal , and walking to [facility]
--- NOTE | 2025-03-01 17:45 | PD.SURHP ---
HPI Date of Admission 03/01/25 16:20 Chief Complaint Chief Complaint: Patient is admitted with a diagnosis of acute calculous cholecystitis. HPI History of present was revealed that the patient has had abdominal pain for the past 5 years. Once he was admitted here in 2020 with diabetic ketoacidosis in the intensive care unit. At that time he was found to have cholelithiasis and possible cholecystitis and was consulted by me. I felt that the diabetes treatment took precedence over cholecystectomy. Moreover his pain improved and did not have much symptoms and I advised an outpatient surgery. He also developed COVID in and surgery was therefore delayed because it was elective and not emergency. He has done reasonably well until this past Saturday when he started having severe pain. Came to the emergency room and was found to have cholelithiasis with a normal WBC however his liver enzymes were elevated with AST of 362 and ALT of 56 and bilirubin is and alkaline phosphatase of 162. Patient was discharged to be returned on Saturday for the MRCP because common bile duct stone was suspected. Patient has gotten sick since discharge and has not been able to eat. When he came in today because liver enzymes showed bilirubin up to 1.7 AST 23 ALT 191 and alkaline phosphatase of 136. Therefore MRCP was done which showed no stones or acute cholecystitis. Patient is therefore taken to the operating room. Patient denies any other major medical problem other than diabetes. 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 Past Medical History Past Medical History NEUROLOGIC: Negative Cerebrovascular Accident, Alzheimer's Disease or Head Trauma CARDIAC: Negative Myocardial Infarction, Angina or Congestive Heart Failure RESPIRATORY: Negative Respiratory Disorders, Chronic Obstructive Pulmonary Disease (COPD) or Emphysema GASTROINTESTINAL: Negative Gastrointestinal Disorders, Liver Cancer or Hepatitis GENITOURINARY: Negative Renal Disease MUSCULOSKELETAL: Negative Musculoskeletal Disorders, Bone Cancer or Scoliosis ENT: Negative History of ENT Problems or Head Trauma ENDOCRINE: Positive Diabetes Mellitus Type 2; Negative Endocrine Disorders or Diabetes Mellitus Type 1 HEMATOLOGIC: Negative Blood Disorders PSYCHO/SOCIAL: Positive Depression and Anxiety OTHER HISTORY: Positive Chicken Pox and Measles; Negative Hospitalization, Autoimmune Disease, Down Syndrome, Autism, Developmental Delay, Shingles, Falls, Anesthesia Reactions, MRSA, Mumps or Cancer Family History FAMILY HISTORY: Positive Family Cardiac Disorders and Family Gastrointestinal Problems; Negative Family Psychiatric Problems or Family Respiratory Disorders Surgical History SURGICAL: Positive Carotid Endarterectomy Social History SMOKING STATUS: Never smoker Meds Home Medications and Allergies Allergies Allergy/AdvReac Type Severity Reaction Status Date / Time No Known Allergies Allergy Verified 03/01/25 08:53 Exam Vital Signs Temp Pulse Resp BP Pulse Ox O2 Del Method 100.4 F 104 H 18 132/81 H 95 Room Air 03/01/25 16:03 03/01/25 16:03 03/01/25 16:03 03/01/25 16:03 03/01/25 16:03 03/01/25 16:03 Narrative Exam Physical examination revealed a well-built well-nourished female he only speaks Montserratian. He is 5 foot 5 inches tall weighing 171 pounds with BMI of 28.5. His vital signs revealed temperature of 100.4 and pulse rate of 104. Constitutional Constitutional: severe distress Routine Chest/Breast/Axilla Exam Comments: Good breath sounds Routine Cardiovascular Exam Comments: Sinus tachycardia Routine Abdominal Exam Comments: Abdominal examination showed considerable tenderness in the upper abdomen on both sides but more so in the epigastric region. Routine Rectal Exam Comments: Deferred Routine Exam Comments: Deferred Routine Extremities Exam Comments: Within normal limits Results Results: Laboratory Laboratory Narrative: Laboratory results today showed still elevated liver enzymes WBC however was 14,000. r but are coming down towards normal Results: Imaging Imaging narrative: The gallbladder ultrasound obviously showed gall and MRCP confirmed acute cholecystitis. The MRCP does not show any evidence of common bile duct stone or dilatation. Assessment & Plan Additional Assessment Additional comments: Impression: Acute cholecystitis with cholelithiasis Diabetes mellitus Plan Plan: Since the common bile duct stone has been ruled out patient will proceed to laparoscopic cholecystectomy under general anesthesia. The procedure was explained to him in detail including the potential complications and the possible need for open cholecystectomy. He is agreeable. He has been started on Zosyn and he will be taken to the operating room today on an emergency basis Quality Measures Quality Measures none
--- NOTE | 2025-03-01 19:23 | ESOP_ITS ---
Date of Procedure 03/01/25 Pre Op Diagnosis Acute calculous cholecystitis Post Op Diagnosis Same Procedure Laparoscopic cholecystictomy Findings Patient is found to have extensive inflammation of the gallbladder with considerable adhesions of the omentum covering the gallbladder making it difficult to dissect Procedure Description After endotracheal anesthesia was given the patient was placed in supine position and the abdomen was prepped with chloroprep solution and draped in a sterile manner. After time out was performed I injected a few cc of of half percent Marcaine with epinephrine below the umbilicus and I made an incision for about 3 cm in length. The fascia was cleaned and Veress needle was inserted to create a pneumoperitoneum up to 15 mmHg. Then introduced a 12 mm trocar and a 10 mm camera through the fascia and I inspected the intra-abdominal organs as well as the gallbladder and the liver. Another 5 mm trocar was inserted in the epigastric region under direct vision after injecting some local anesthesia. At this time the patient was kept in reverse Trendelenburg position with the left lateral tilt. The third 5 mm trocar was inserted over the mid axillary line under direct vision and a Adrian and Gemelania grasper was used to hold the fundus of the gallbladder. The gallbladder was found to be extremely distended and difficult to grasp. Therefore it was decompressed using a needle and clear bile was obtained suggesting it was a hydrops of the gallbladder. The retraction was carried out by the title i assistant moving the fundus of the gallbladder towards the right shoulder of the patient to create enough traction. I placed a another 5 mm trocar in the midaxillary line just lateral to the rectus muscle under direct vision. I used a fenestrated grasper to retract the neck of the gallbladder laterally towards the patient's right hip. The Calot's triangle was exposed and I achieved the critical view of safety as follows: I dissected out the fatty tissue from the hepatocystic triangle and cleared this area. I also dissected inferior and posterior to the gallbladder to identify the cystic duct and the gallbladder wall. Then superiorly I dissected along the cystic plate up to lower one third third of the gallbladder to lift the gallbladder from the liver. At this time I confirmed that only 2 structures entering the gallbladder were cystic artery and the cystic duct. The cystic duct was not clearly seen. The common duct was seen distally but no dissection was carried out around the duct. I did not see any need for operative cholangiogram in this patient. The cystic duct was clipped doubly and then divided and cystic artery was similarly dealt with. Then the gallbladder was removed from the liver bed using Harmonic benedicto to control the small blood vessels as the dissection proceeded. Then the gallbladder was from the liver bed completely and delivered through the umbilical port using an Endopouch. The liver bed was coagulated with cautery to obtain satisfactory hemostasis. Because of the dissection from the liver bed was showing so much adhesions there was oozing from the liver bed which was treated with Surgicel powder and then a Surgicel gauze. The trocars were pulled out from the abdominal cavity and the fascia at the umbilical incision was closed with interrupted 0 Ethibond. Subcutaneous tissues was closed with 3-0 chromic and injected a few cc of half percent Marcaine with epinephrine and the skin was closed with interrupted 4-0 nylon stitches at all the trocar sites. Dressing was applied with 2 x 2 and Tegaderm. Patient tolerated the procedure well and returned to recovery room in stable condition. Anesthesia GETA Pathology / specimen Other (Gallbladder and the stones) IVF Infused 1,000 Estimated Blood Loss 150 Surgeon Oliva Dos Santos MD Surgical Staff Operation Date: 03/01/25 17:00 Case Staff Anesthesiologist: Kevin Nieves RNpipe smoking machine operator: Tammy Stallings
--- NOTE | 2025-03-01 19:38 | SUR.PHASEI ---
1938: Pt. arrived with oral airway in place, vitals stable, breathing unlabored, no signs of distress, x4 dressing to ABD CDI, no active bleed noted, report recieved from MD Nieves and Dayo BENITO.
--- NOTE | 2025-03-01 20:09 | SUR.PHASEI ---
2009: Pt. AAOx4, vitals stable, breathing unlabored, complaint of slight pain, pt. stated pain is tolerable, no complaint of nausea, x4 dressing sites to ABD CDI, no active bleed noted, pt. tolerated a bite of ice chips well, gave report to Abdirahman BENITO prior to transfer to room 379. Pt. transferred with all personal belongings.
[2025-03-01] MEDS: SODIUM CHLORIDE 0.9% 1000 ML 1,000 ML 125 ML IV (21:51)
[2025-03-02] VITALS: BP 129/79; PULSE 74; RESP 18; TEMP 36.3; O2SAT 93
[2025-03-02 04:00] VITALS: BP 132/79; PULSE 78; RESP 18; TEMP 36.2; O2SAT 94
[2025-03-02] MEDS: PIPER/TAZO 3.375 GM PREMIX 3.375 GM/50 ML BAG IV ×2 (05:26→14:05)
[2025-03-02] MEDS: KETOROLAC INJ 30 MG/ML VIAL IVP ×2 (05:33→12:10)
[2025-03-02] MEDS: SODIUM CHLORIDE 0.9% 1000 ML 1,000 ML 125 ML IV (05:33)
[2025-03-02 05:51] LABS: Basophils # (Auto) 0.0 Thou/mm3 (0.0-0.2); Basophils % (Auto) 0 % (0-2.5); Eosinophils # (Auto) 0.0 Thou/mm3 (0.0-0.5); Eosinophils % (Auto) 0 % (0-10); Hematocrit 39.3 % (41.0-53.0); Hemoglobin 13.0 g/dL (13.5-16.0); Immature Granulocytes Auto 0.05 Thou/mm3 (0.00-0.00); Lymphocytes # (Auto) 0.9 Thou/mm3 (1.0-4.8); Lymphocytes % (Auto) 10 % (10-50); Mean Corpuscular HGB Conc 33.1 g/dl (31.0-37.0); Mean Corpuscular Hemoglobin 28.8 pg (25.0-35.0); Mean Corpuscular Volume 87 fL (80-100); Monocytes # (Auto) 0.5 Thou/mm3 (0.0-0.8); Monocytes % (Auto) 5 % (0-12); Neutrophils # (Auto) 7.5 Thou/mm3 (1.8-7.7); Neutrophils % (Auto) 84 % (37-80); Nucleated Red Blood Cell # 0.00 Thou/mm3 (0.00-0.00); Nucleated Red Blood Cell % 0 /100 WBC (0); Platelet Count 204 Thou/mm3 (140-440); RDW Standard Deviation 41.1 fL (35.1-43.9); Red Blood Count 4.52 Miln/mm3 (4.50-5.90); White Blood Count 8.9 Thou/mm3 (3.8-10.6)
[2025-03-02 06:25] LABS: Alanine Aminotransferase 138 U/L (10-49); Albumin, Serum 4.0 gm/dL (3.5-5.0); Alkaline Phosphatase 101 U/L (46-116); Anion Gap 14 (7-16); Aspartate Amino Transferase 48 U/L (0-34); Bilirubin,Direct 0.3 mg/dL (0.0-0.3); Bilirubin,Total 0.9 mg/dL (0.3-1.2); Carbon Dioxide 21.7 mMol/L (20.0-31.0); Chloride 103 mMol/L (98-107); Potassium 4.4 mMol/L (3.4-5.1); Sodium 139 mMol/L (136-145); Total Protein 6.4 gm/dL (5.7-8.2)
[2025-03-02 08:00] VITALS: BP 114/74; PULSE 70; RESP 18; TEMP 36.2; O2SAT 94
[2025-03-02 12:00] VITALS: BP 118/76; PULSE 76; RESP 17; TEMP 36.9; O2SAT 96
--- NOTE | 2025-03-02 14:16 | ESPR_ITS ---
Documentation for date of: 03/02/25 Subjective Subjective Brief History: History of present was revealed that the patient has had abdominal pain for the past 5 years. Once he was admitted here in 2020 with diabetic ketoacidosis in the intensive care unit. At that time he was found to have cholelithiasis and possible cholecystitis and was consulted by me. I felt that the diabetes treatment took precedence over cholecystectomy. Moreover his pain improved and did not have much symptoms and I advised an outpatient surgery. He also developed COVID in and surgery was therefore delayed because it was elective and not emergency. He has done reasonably well until this past Saturday when he started having severe pain. Came to the emergency room and was found to have cholelithiasis with a normal WBC however his liver enzymes were elevated with AST of 362 and ALT of 56 and bilirubin is and alkaline phosphatase of 162. Patient was discharged to be returned on Saturday for the MRCP because common bile duct stone was suspected. Patient has gotten sick since discharge and has not been able to eat. When he came in today because liver enzymes showed bilirubin up to 1.7 AST 23 ALT 191 and alkaline phosphatase of 136. Therefore MRCP was done which showed no stones or acute cholecystitis. Patient is therefore taken to the operating room. Patient denies any other major medical problem other than diabetes. 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 Narrative: The patient is feeling much better today and is tolerating clear liquids Exam Vital Signs Temp Pulse Resp BP Pulse Ox O2 Del Method O2 Flow Rate 97.1 F 70 18 114/74 94 L Room Air 2 03/02/25 08:00 03/02/25 08:00 03/02/25 08:00 03/02/25 08:00 03/02/25 08:00 03/02/25 08:00 03/01/25 20:08 His vital signs are normal Routine Abdominal Exam Comments: Abdominal examination showed mild tenderness over the incision. Results Results: Laboratory Laboratory Narrative: Laboratory results are normal with hemoglobin around 13 g and the liver enzymes are returning to normal Assessment & Plan Assessment Additional comments: Impression: Satisfactory postoperative course following acute cholecystitis treated with laparoscopic cholecystectomy Plan Plan: We shall discharge patient today and follow him up in office in a week. PROCEDURES: Procedures Laparoscopic cholecystictomy
[2025-03-02 16:00] VITALS: BP 118/76; PULSE 76; RESP 17; TEMP 36.9; O2SAT 96
== END 2025-03-02 19:01 | disposition home or self-care (01) ==
LOC: SERX 16:10 → SERHOLD 17:02 → S3SX 20:11
PROVIDERS: Nurse Practitioner Family; Admitting Provider Surgery; Emergency Provider Emergency Medicine; PCP Family Medicine; Visit Provider Surgery
PROC: 0FT44ZZ Resection of Gallbladder, Percutaneous Endoscopic Approach (ICD-10-PCS; CPT 47562; principal; 2025-03-01 17:00)
DX: K80.12 Calculus of gallbladder with acute and chronic cholecystitis without obstruction (principal); K82.8 Other specified diseases of gallbladder
CPT/HCPCS: 47562; 36415; 74181; 80051; 80053; 80076; 81001; 83605; 83690; 84145; 85025; 87040; 87081; 87086; 96365; 96366; 96375; 96376; 99284; A4217; A4649; G0378; J0131; J1100; J1885; J2250; J2270; J2371; J2405; J2543; J2704; J2710; J3010; J3490; J7030; J1596